=== PATIENT | female | born 1960 | race Caucasian/White ===

== ENCOUNTER → 2017-02-08 | Outpatient (REF) | payer OTHER ==
[~2017-02-08] MED LIST: /METH500TA OR; AMLO10TA2 PO; AMLO10TAB OR; AMLO5TAB OR; ASPI81TA83 OR; ASPI81TAEC PO; ATEN25TA OR; ATEN25TA PO; ATEN50TA2 OR; BENI40TA5 PO; BENICAR HCT PO; BIOTCAP PO; CETI10TA OR; COLA100C2 OR; COLA100C3 PO; FISH1000 OR; K-TA10TA OR; L-LY500C2 PO; MECL-68 PO; META0.52 PO; METAMUCIL PO; MULTIVIT PO; NASONEX INH; NEXI20CA OR; NEXI40CA PO; POTA10CA PO; ROSU10TA OR; VICO5TAB OR; VITAMIN D50000 UNT OR; VITMTA PO; ZOFR20TA PO; ZYRT10TA2 PO
== END ==
LOC: M LAB REF 16:54
PROVIDERS: ATTEND Physician Assistant Medical
DX: N39.0 Urinary tract infection, site not specified (principal)

== ENCOUNTER → 2017-03-17 | Outpatient (REF) | payer OTHER | LOC: M SFHCWAGY 12:41 | PROVIDERS: ATTEND Nurse Practitioner Family | DX: Z12.4 Encounter for screening for malignant neoplasm of cervix (principal) ==

== ENCOUNTER → 2017-03-17 | Outpatient (CLI) | payer OTHER ==
--- NOTE | 2017-03-17 12:58 | REPMRS ---
Patient History The patient states she had a clinical breast exam in 04/01 Patient is postmenopausal and has history of skin cancer at age 45. No known family history of cancer. Digital Woman Screen Mammo: March 17, 2017 - Exam #: [id number] Bilateral CC and MLO view(s) were taken. Technologist: Janell Jimenes, Technologist Prior study comparison: March 11, 2016, digital woman screen mammo performed at [facility] to [facility]. August 29, 2014, digital woman screen mammo performed at [facility] to [facility]. FINDINGS: There are scattered fibroglandular densities. There has been no change in the appearance of the mammogram from the prior studies. There is a mild amount of residual fibroglandular tissue which is fairly symmetric. There is no interval development of dominant mass, architectural distortion, or clustered microcalcification suggestive of malignancy. ASSESSMENT: BI-RADS/ACR category 1 mammogram. Negative. Recommendation Routine screening mammogram in 1 year (for women over age 40). This mammogram was interpreted with the aid of an FDA-approved computer-aided dectection system. Electronically Signed By: Aneesh Reddy MD 03/17/17 1257
== END ==
LOC: M WHC 10:12
PROVIDERS: ATTEND Nurse Practitioner Family
DX: Z12.31 Encounter for screening mammogram for malignant neoplasm of breast (principal)

== ENCOUNTER → 2018-05-02 | Outpatient (REF) | payer OTHER | LOC: M LAB REF 17:11 | DX: R35.0 Frequency of micturition (principal) ==

== ENCOUNTER → 2018-06-22 | Outpatient (REF) | payer OTHER ==
[2018-06-26 14:12] LABS: HPV HYBRID CAPTURE II Negative (Negative)
== END ==
LOC: M SFHCWAGY 09:53
DX: Z12.4 Encounter for screening for malignant neoplasm of cervix (principal); N95.2 Postmenopausal atrophic vaginitis
CPT/HCPCS: G0123

== ENCOUNTER → 2018-06-22 | Outpatient (CLI) | payer OTHER | LOC: M WHC 09:30 | DX: Z12.31 Encounter for screening mammogram for malignant neoplasm of breast (principal) | CPT/HCPCS: 77067; G0123 ==

== ENCOUNTER → 2019-08-16 | Outpatient (CLI) | payer OTHER ==
[~2019-08-16] MED LIST changes: -/METH500TA OR; -AMLO10TA2 PO; +AMLO10TA5 PO; +BENI40TA28 PO; -BENI40TA5 PO; -COLA100C3 PO; +COLA100C5 PO; +CRES10TA32 OR; +KLOR10TA76 PO; +METH1TAB40 OR; -POTA10CA PO; -ROSU10TA OR; -ZOFR20TA PO; +ZOFR4TAB16 PO; +ZYRT10CA5 PO; -ZYRT10TA2 PO
--- NOTE | 2019-08-16 10:50 | REP ---
Clinical: Sciatica. Technique: AP, lateral, bilateral oblique and coned-down views of the lumbosacral spine. Findings: Age-related osteopenia and moderate multilevel degenerative changes includes endplate sclerosis with minimal disc space narrowing and hypertrophic facet changes. Findings most pronounced at L4-5 and L5-S1. No acute fracture / compression injury or subluxation. No obvious spondylolysis or spondylolisthesis. Impression: Osteopenia and moderate multilevel degenerative changes. Electronically Signed by Les Adams MD 08/16/2019 10:41 A
== END ==
LOC: M WUC 10:17
PROVIDERS: ATTEND Internal Medicine
DX: M54.31 Sciatica, right side (principal)

== ENCOUNTER → 2019-11-15 | Outpatient (CLI) | payer OTHER ==
[~2019-11-15] MED LIST changes: -MECL-68 PO; +MECL1TAB31 PO
--- NOTE | 2019-11-15 14:57 | REP ---
BILATERAL SCREENING DIGITAL MAMMOGRAM WITHOUT 3D TOMOSYNTHESIS: There are no palpable abnormalities or other breast complaints. The the patient states she had a clinical breast examination October,. The the patient states she performs self-breast examinations 12 times per year. The Tyrer-zi Lifetime Breast Cancer Risk Score is: 7.3% . Comparison is 08/29/2014. There are scattered areas of fibroglandular density. There is no dominant mass, micro calcific cluster or architectural distortion that would indicate malignancy. There is no change from the prior study. Impression: BIRADS/ACR category 1 mammogram. Negative. Recommendation: Routine annual screening mammography. This mammogram was interpreted with the aid of a FDA approved computer-aided detection system. A. Negative mammogram reports should not delay biopsy if a dominant or clinically suspicious mass is present. B. Not all breast cancers are identified by mammography or tomosynthesis. C. Adenosis and dense breasts may obscure an underlying neoplasm. Patient letter M1. Electronically Signed by Aneesh White MD 11/15/2019 02:49 P
== END ==
LOC: M WHC 14:00
PROVIDERS: ATTEND Nurse Practitioner Family
DX: Z12.31 Encounter for screening mammogram for malignant neoplasm of breast (principal)
CPT/HCPCS: 77067; G0463

== ENCOUNTER → 2021-02-11 | Outpatient (CLI) | payer OTHER ==
[~2021-02-11] MED LIST changes: -AMLO10TA5 PO; +AMLO1TAB25 PO; +ASPI-569 PO; -ASPI81TAEC PO
--- NOTE | 2021-02-11 12:20 | REPMRS ---
Patient History The patient states she had a clinical breast exam in January 2021. No known family history of cancer. Took estrogen for 1 year. Patient states no breast complaints. Patient has signed the MRS history sheet. Digital Woman Screen Mammo: February 11, 2021 - Exam #: [id number] Bilateral CC and MLO view(s) were taken. Technologist: Janell Jimenes, Technologist Prior study comparison: November 15, 2019, bilateral digital woman screen mammo performed at [facility]. June 22, 2018, bilateral digital woman screen mammo performed at [facility]. FINDINGS: There are scattered fibroglandular densities. Screening. Digital screening (2D) mammography was performed bilaterally in the CC and MLO projections. Additionally, breast tomosynthesis (3D mammography) was performed bilaterally in the CC and MLO projections. Todays exam was compared to the prior exams(s). By history, the patient has no complaints of a palpable breast abnormality or other significant breast complaints. The breasts are unchanged in size and shape. There are no laurent-soft tissue densities or spiculated masses. There is no internal architectural distortion.Once again, stable benign appearing calcifications are seen. There are no suspicious laurent-calcific clusters. Skin thickening or nipple retraction is not present. IMPRESSION: BI-RADS Category 2- Benign Findings(s). There is no evidence of malignant alteration of the breasts. Followup examination recommended in one year. The Volpara volumetric breast density category is B, there are scattered areas of fibroglandular density. This mammogram was read with the assistance of [employer],an FDA approved computer aided detection system for mammography. The lifetime Tyrer-Cuzick score is 7.1 % Negative x-ray reports should not delay surgical consultation if a dominant or clinically suspicious mass is present. Not all breast cancers can be identified by mammography. Therefore, we recommend that you continue to perform regular breast self-examination and physical examination and then promptly contact your physician of any concerns or changes. Adenosis and dense breasts may obscure an underlying neoplasm. Assessment: BI-RADS/ACR category 2 mammogram. Benign Findings. Recommendation Routine screening mammogram of both breasts in 1 year. Electronically Signed By: Roland Woodard DO 02/11/21 [id number]
== END ==
LOC: M WHC 10:39
PROVIDERS: ATTEND Nurse Practitioner Women's Health
DX: Z12.31 Encounter for screening mammogram for malignant neoplasm of breast (principal); Z12.4 Encounter for screening for malignant neoplasm of cervix
CPT/HCPCS: 77063; 77067; 87624; G0123; G0463

== ENCOUNTER → 2021-02-22 | Outpatient (CLI) | payer OTHER ==
--- NOTE | 2021-02-22 15:29 | REP ---
INDICATION: R10.2 RT ADNEXAL TENDERNESS COMPARISON: 01/07/2010 TECHNIQUE: Transabdominal pelvic ultrasound followed by transvaginal examination for better evaluation of the endometrium and adnexa with color Doppler evaluation of the ovaries. FINDINGS: Bladder is unremarkable and measures 5.4 x 1.3 x 4.3 cm. Normal anteverted uterus measures 5.5 x 2.0 x 3.4 cm. The endometrial complex measures less than 2 mm thickness. No discrete uterine or endometrial abnormalities are appreciated. Right ovary is not visualized. Left ovary is normal in appearance and vascularity without torsion measuring 2.2 x 1.2 x 1.5 cm (RI 0.79). No pelvic fluid or adnexal mass lesion. IMPRESSION: No obvious abnormalities. Right ovary not visualized. <Electronically signed by Les Adams > 02/22/21 1240
== END ==
LOC: M WHC 09:58
PROVIDERS: ATTEND Nurse Practitioner Women's Health
DX: R10.2 Pelvic and perineal pain (principal)

== ENCOUNTER 2021-08-13 08:25 | Day surgery (SDC) | payer OTHER ==
[~2021-08-13] VITALS: Ht 157.5 cm; Wt 64.8 kg
[~2021-08-13 08:25] MED LIST changes: +CETI10CA13 PO; +CRES10TA; +D31000TA2 PO; +FLUC150T; +GABA600T4 PO; -KLOR10TA76 PO; +L-LY500T9 PO; +NITR0.4S14 SL; +NS 1,000 ML IV ONE; +POTA-136 PO
--- OUTSIDE RECORDS SUMMARY | 2021-08-13 08:31 | CCD | Continuity of Care Document ---
Author Author Sharon BUNCH M.D. Organization Unknown Address [address] [place], [place] [address] Phone [phone] Problems Active Problems Provider Date Gastroesophageal reflux disease Fredi Bunch M.D. Onse t: 11/29/2018 Essential hypertension Fredi Bunch M.D. Onset: 2018 Hyperlipidemia Fredi Bunch M.D. Onset: 9 Vertigo Fredi Bunch M.D. Onset: 9 Coronary atherosclerosis Fredi Bunch M.D. Onset: 11/16 Herpes labialis Fredi Bunch M.D. Onset: 9 Social History Type Date Description Comments Sex Unknown Tobacco Use Start: Unknown End: Quit Tobacco Use Start: Unknown End: Unknown Patient is a former smoker Allergies, Adverse Reactions, Alerts Active Allergies Criticality Reaction | Severity Comments Date Cefzil Unable to assess criticality hives 11/29/2018 Medications Active Medications SIG Qnty Indications Ordering Provide r Date Cipro 500mg Tablets 1 by mouth twice a day 6tabs Fredi Bunch M.D. 06/28/20 21 Zithromax Z-Vitaliy 250mg Tablets 2 tab by mouth today and then 1 tab by mouth daily for 4 days 1pack Fredi Bunch M.D. 11/25/2020 Diflucan 150mg Tablets one by mouth x1 2tabs Fredi Bunch M.D. 11/25/[address] 1 by mouth every day 90tabs Fredi Bunch M.D. 11/12/19 20 Tramadol HCL 50mg Tablets 1 tab by mouth three times a day as needed pain. [id number] 45tabs [facility] Fredi hussein M.D. 08/16/2019 Gabapentin 600mg Tablets take one tablet by mouth three times a day 270taFredi Robertson M. D. 07/12/2019 Potassium Chloride ER 10Meq Capsul es ER 1 by mouth twice a day 180Fredi Caicedo M.D. Biotin 5000 5mg Capsules 1 by mouth every day 30Fredi Caicedo M.D. 11/29/19 19 Magnesium 400mg Tablets 1 by mouth every day 30taFredi Robertson M.D. 11/29/19 19 L-Lysine 500mg Tablets 2 po q d Fredi Bunch M.D. 11/29/2018 Vitamin D3 5000Unit Tablets 1 by mouth every day OTC Fredi Bunch M.D. 11/29/19 19 Metamucil 0.52gm Capsules 4 p o qd OTC Fredi Bunch M.D. 11/29/2018 Nitroglycerin 0.4mg Tablets Sub take 1 tablet under the tongue every 5 minutes x 3 doses as needed for chest pain 1bottle Fredi Bucnh M.D. 11/29/2018 Co Q 10 100mg Capsules 1 by mouth every day Unknown One Daily Multivitamin Women Tabl ets 1 po qd Unknown Colace 100mg Capsules 1 by mouth twice a day Unknown Ondansetron HCL 4mg Tablets take one tablet by mouth every 8 hours as needed for nausea Fredi Bunch M.D. Meclizine HCL 25mg Tablets 1 by mouth three times a day as needed for vertigo Fredi Bunch M.D. Methocarbamol 500mg Tablets 1 by mouth every day 90taFredi Robertson M.D. Valtrex 1gm Tablets 2 po bid 4tabs Fredi Bunch M.D. Aspirin 81mg Tablets DR 1 by mouth every day Unknown Crestor 10mg Tablets 1 by mouth every day 90tabs Fredi Bunch M.D. Loratadine 10mg Tablets 1 by mouth every day 90taFredi Robertson M.D. 00 Amlodipine Besylate 10mg Tablets 1 by mouth every day 90tabs Fredi Bunch M.D. Benicar HCT 40-12.5mg Tablets 1 by mouth every day 90tabs Fredi Bunch M.D. Atenolol 25mg Tablets 1 by mouth every day 90tabs Fredi Bunch M.D. Medications Administered in Office Medication SIG Qnty Indications Ordering Provider Date Injection (SC)/(Im) Injection Fredi Bunch M.D. 07/12/2019 Immunizations CPT Code Status Date Vaccine Lot # [id number] Given 07/13/2020 Influenza Virus Vaccine, Quadrivalent, Slit Virus, Im Use 3Y & Up [id number] Given 07/12/2019 Influenza Virus Vaccine, Quadrivalent, Slit Virus, Im Use 3Y & Up [id number] Vital Signs Date Vital Result Comment 06/28/2021 10:06am BP Systolic 126 mmHg BP Diastolic 76 mmHg Body Temperature 98.7 F Heart Rate 92 /min Respiratory Rate 12 /min Height 62 inches 5'2" Weight 136.00 lb [place] Body Weight 110 lb BMI (Body Mass Index) 24.9 kg/m2 O2 % BldC Oximetry 97 % 04/09/2021 9:25am BP Systolic 124 mmHg BP Diastolic 70 mmHg Body Temperature 98.2 F Heart Rate 60 /min Respiratory Rate 12 /min Height 62 inches 5'2" Weight 138.00 lb [place] Body Weight 110 lb BMI (Body Mass Index) 25.2 kg/m2 O2 % BldC Oximetry 96 % Results Test Acquired Date Facility Test Result H/L Range Note U/A DIP FPA 06/28/2021 [facility] Color Urine YELLOW Yellow Appearance CLEAR Clear Specific [place] 1.020 1.00-1.03 PH Urine 6.0 5.0-8.0 Glucose Urine NEG Negative Bilirubin Urine NEG Negative Ketones NEG Negative Blood Urine 2+ High Negative Protein Urine 1+ High Negative Urobilinogen .2 EU/dl 0.2-1.0 Nitrite NEG Negative Leukocytes 3+ High Negative Urine Culture, Routine 06/28/2021 [facility] [place] Urine Culture, Routine Preliminary repo <SEE NOTE> Abnormal 1, 2 Result 1 Klebsiella pneum <SEE NOTE> Abnormal 3 CBC 03/19/2021 [facility]/Inhouse WBC 5.8 10E3/uL 4.1 - 10.9 4 RBC 4.57 10E6/uL 4.20 - 6.30 HGB 13.7 g/dL 12.0 - 18.0 HCT 40.8 % 37.0 - 51.0 MCV 89.3 fL 80.0 - 97.0 MCH 30.0 pg 26.0 - 32.0 MCHC 33.6 g/dL 31.0 - 36.0 PLT 220 10E3/uL 140 - 440 RDW-CV 12.6 % 11.5 - 14.5 Lym% 44.5 % 10.0 - 58.5 Neut% 45.0 % 37.0 - 92.0 MXD% 10.5 % 0.1 - 24.0 Lym# 2.6 10E3/uL 0.6 - 4.1 Neut# 2.6 % 2.0 - 7.8 MXD# 0.6 10E3/uL 0.0 - 1.8 MPV 9.4 fL 9.0 - 13.0 CMP 03/19/2021 [facility]Inhouse Glu 90 mg/dL 70 - 110 BUN 10 mg/dL 8 - 23 Creat 0.8 mg/dL 0.5 - 1.0 BUN/Creatinine Ratio 12.7 CALC Na 140 mmol/L 136 - 145 K 3.8 mmol/L 3.5 - 5.1 CL 99.9 mmol/L 98.0 - 107.0 Co2 26.8 mmol/L 22.0 - 29.0 CA 9.4 mg/dL 8.6 - 10.2 TP 6.5 g/dL Low 6.6 - 8.7 Alb 4.7 g/dL 3.4 - 4.8 A/G Ratio 2.5 CALC Globulin 1.9 CALC Alp 89.8 U/L 35 - 129 Alt (SGPT) 17 U/L 0 - 41 Ast (Sgot) 23 U/L 0 - 40 Tbili 0.52 mg/dL 0.0 - 1.2 Osmolality-Calculated 278.6 CALC Anion Gap 18 mmol/L eGFR 91 # Calc 5 eGFR Non-Afr. Scottish 78 # Calc 6 Lipid Panel 03/19/2021 [facility]/Inhouse Chol 157 mg/dL 0 - 200 Trig 124 mg/dL 40 - 200 HDL 47 mg/dL 45 - 65 LDL_C 85 Calc 75 - 129 Cho/HDL Ratio 3.3 Calc 1 SRC:URINE 2 Preliminary report Source of Specimen: URINE 3 Klebsiella pneumoniae Source of Specimen: URINE 10,000-25,000 colony forming units per m L 4 NORMAL RANGES Age WBC RBC HGB HCT MCV PLT Adult M 4.1-10.9 4.20-6.30 12.0-18.0 37.0-51.0 80-97 140-440 Adult F 4.1-10.9 4.04-5.48 12.0-18.0 37.0-51.0 80-97 140-440 0 -1 Yr 5.0-20.0 3.9-5.9 15-18 MV: 44 MV: 91 MV: 277 2-9 Yr. 6.0-17.0 3.8-5.4 11-13 MV: 37 MV: 78 MV: 300 10 Yrs. 5.0-13.0 3.8-5.4 12-15 MV: 39 MV: 80 MV: 250 NOTE: * FOR ADULT BLACK MALES AND FEMALES, NORMAL WBC IS 2.9-7.7 K/ML * FOR ADULT BLACK MALES AND FEMALES, NORMAL RBC,HGB, AND HCT IS 5% LESS SOURCE FOR DATA: 6fusion 1800 OPERATION MANUAL( AUTOMATED BLOOD COUNTS AND DIFF.) APPENDIX B-3 CHRONIC KIDNEY DISEASE STAGING PER NKF: MALE GFR INTERPRETATION: 20-49 YRS: >60 mL/min Normal 50-59 YRS: >56 mL/min Normal 60-69 YRS: >49 mL/min Normal 70-79 YRS: >42 mL/min Normal 80 and above >35 mL/min Normal FEMALE GRF INTERPRETATION: 20-39 YRS: >60 mL/min Normal 40-49 YRS: >58 mL/min Normal 50-59 YRS: >51 mL/min Normal 60-69 YRS: >45 mL/min Normal 70-79 YRS: >39 mL/min Normal 80 and above >32 mL/min NormalCLASSIFICATION CHOLESTEROL FOR ADULTS CHILDREN/ADOLESCENTS* DESIRABLE: <200 MG/DL <170 MG/DL BORDER-LINE HIGH RISK: 200-239 MG/DL 170-199 MG/DL HIGH RISK: >240 MG/DL >200 MG/DL CLASS. FOR PRIMARY LDL CHOL PREVENTION: LDL CHOL-CHILD/ADOLESCENTS* DESIRABLE: <130 MG/DL <110 MG/DL BORDERLINE-HIGH RISK: 130-159 MG/DL 110-129 MG/DL HIGH RISK: >160 MG/DL >130 MG/DL *CHILDREN AND ADOLESCENTS REPRESENTS INDIVIDUALA AGED 2-19 YEARS EXCLUSIVE. 5 CKD-EPI 6 CKD-EPI Procedures Date Code Description Status 06/28/2021 24733 Office/Outpatient Established Mo d MDM 30-39 Min Completed 04/09/2021 68813 Office/Outpatient Established Mo d MDM 30-39 Min Completed 03/19/2021 70157 Office/Outpatient Established Mo d MDM 30-39 Min Completed Medical Devices Description No Information Available Encounters Type Date Location Provider Dx Diagnosis Office Visit 06/28/2021 10:00a [place] [facility] Fredi Bunch M. D. N39.0 Urinary tract infection, site not specified Office Visit 04/09/2021 9:15a [place] [facility] Fredi Bunch M. D. Z85.828 Personal history of other malignant neoplasm of skin J01.90 Acute sinusitis, unspecified Office Visit 03/19/2021 10:20a [place] [facility] Fredi Bunch M. D. E78.5 Hyperlipidemia, unspecified I10 Essential (primary) hyperten delmi I25.10 Athscl heart disease of sarah ve coronary artery w/o ang pctrs K21.9 Gastro-esophageal reflux dis ease without esophagitis Assessments Date Code Description Provider 06/28/2021 N39.0 Urinary tract infection, site no t specified Fredi Bunch M.D. 04/09/2021 Z85.828 Personal history of other malign ant neoplasm of skin Fredi Bunch M.D. 04/09/2021 J01.90 Acute sinusitis, unspecified [facility] Fredi jackson M.D. 03/19/2021 E78.5 Hyperlipidemia, unspecified [facility] Fredi hussein M.D. 03/19/2021 I10 Essential (primary) hypertension Fredi Bunch M.D. 03/19/2021 I25.10 Atherosclerotic heart disease of resighini coronary artery with Fredi Bunch M.D. 03/19/2021 K21.9 Gastro-esophageal reflux disease without esophagitis Fredi Bunch M.D. Plan of Treatment No Information Available Functional Status Description No Information Available Mental Status Description No Information Available Referrals Refer to Reason for Referral Status Appt Date [facility] f/u for basal cell ca Tr icare Auth [id number] Expiration 04/03/22 Sent [id number] [facility] [address] [place] [address] [phone] Sanju Kaplan M.D. screening cscope Sent 05/04/2021 [address] [facility] [address] [place], [place] [address] [phone]
--- OUTSIDE RECORDS SUMMARY | 2021-08-13 08:31 | CCD | Continuity of Care Document ---
Author Author Sharon BUNCH M.D. Organization Unknown Address [address] [place], [place] [address] Phone [phone] Problems Active Problems Provider Date Gastroesophageal reflux [...] three times a day as needed pain. [id number] 45tabs [facility] Fredi hussein M.D. 08/16/2019 Gabapentin [...] as needed for chest pain 1bottle Fredi Bunch M.D. 11/29/2018 Co Q 10 100mg Capsules [...] CPT Code Status Date Vaccine Lot # 48499 Given 07/13/2020 Influenza Virus Vaccine, Quadrivalent, Slit Virus, Im Use 3Y & Up [id number] Given 07/12/2019 Influenza Virus Vaccine, Quadrivalent, Slit Virus, Im Use 3Y & Up [id number] Vital Signs Date Vital Result Comment 06/28/2021 10:06am BP Systolic 126 mmHg BP Diastolic 76 mmHg Body Temperature 98.7 F Heart Rate 92 /min Respiratory Rate 12 /min Height 62 inches 5'2" Weight 136.00 lb [place] Body Weight 110 lb BMI (Body Mass Index) 24.9 kg/m2 O2 % BldC Oximetry 97 % 04/09/2021 9:25am BP Systolic 124 mmHg BP Diastolic 70 mmHg Body Temperature 98.2 F Heart Rate 60 /min Respiratory Rate 12 /min Height 62 inches 5'2" Weight 138.00 lb [place] Body Weight 110 lb BMI (Body Mass Index) 25.2 kg/m2 O2 % BldC Oximetry 96 % Results Test Acquired Date Facility Test Result H/L Range Note U/A DIP FPA 06/28/2021 [facility] Color Urine YELLOW Yellow Appearance CLEAR Clear Specific [place] 1.020 1.00-1.03 PH Urine 6.0 5.0-8.0 Glucose Urine NEG Negative Bilirubin Urine NEG Negative Ketones NEG Negative Blood Urine 2+ High Negative Protein Urine 1+ High Negative Urobilinogen .2 EU/dl 0.2-1.0 Nitrite NEG Negative Leukocytes 3+ High Negative Urine Culture, Routine 06/28/2021 [facility] [place] Urine Culture, Routine Final report Abnormal 1, 2 Result 1 Klebsiella pneum <SEE NOTE> Abnormal 3 Antimicrobial Susceptibility See Comment: 4 CBC 03/19/2021 FPA/Inhouse WBC 5.8 10E3/uL 4.1 - 10.9 5 RBC 4.57 10E6/uL 4.20 - 6.30 HGB [...] Gap 18 mmol/L eGFR 91 # Calc 6 eGFR Non-Afr. Swedish 78 # Calc 7 Lipid Panel 03/19/2021 [facility]/Inhouse Chol 157 mg/dL 0 - 200 Trig 124 mg/dL 40 - 200 HDL 47 mg/dL 45 - 65 LDL_C 85 Calc 75 - 129 Cho/HDL Ratio 3.3 Calc 1 SRC:URINE 2 Source of Specimen: URINE 3 Klebsiella pneumoniae Source of Specimen: URINE 10,000-25,000 colony forming units per m L Cefazolin <=4 ug/mL Cefazolin with an ERIC <=16 predicts susceptibility to the oral agents cefaclor, cefdinir, cefpodoxime, cefprozil, cefuroxime, cephalexin, and loracarbef when used for therapy of uncomplicated urinary tract infections due to E. coli, Klebsiella pneumoniae, and Proteus mirabilis. 4 Source of Specimen: URINE S = Susceptible; I = Intermediate; R = Resistant P = Positive; N = Negative MICS are expressed in micrograms per mL Antibiotic RSLT#1 RSLT#2 RSLT#3 RSLT#4 Amoxicillin/Clavulanic Acid S Ampicillin R Cefepime S Ceftriaxone S Cefuroxime S Ciprofloxacin S Ertapenem S Gentamicin S Imipenem S Levofloxacin S Meropenem S Nitrofurantoin R Piperacillin/Tazobactam S Tetracycline R Tobramycin S Trimethoprim/Sulfa S 5 NORMAL RANGES Age WBC RBC HGB HCT [...] HCT IS 5% LESS SOURCE FOR DATA: [employer] 1800 OPERATION MANUAL( AUTOMATED BLOOD COUNTS AND [...] ADOLESCENTS REPRESENTS INDIVIDUALA AGED 2-19 YEARS EXCLUSIVE. 6 CKD-EPI 7 CKD-EPI Procedures Date Code Description Status 06/28/2021 09432 Office/Outpatient Established Mo d MDM 30-39 Min Completed 04/09/2021 49193 Office/Outpatient Established Mo d MDM 30-39 Min Completed 03/19/2021 82648 Office/Outpatient Established Mo d MDM 30-39 Min Completed Medical Devices Description No Information Available Encounters Type Date Location Provider Dx Diagnosis Office Visit 06/28/2021 10:00a [facility] Fredi Bunch M. D. N39.0 Urinary tract infection, site not specified Office Visit 04/09/2021 9:15a [place] [facility] Fredi Bunch M. D. Z85.828 Personal history of other malignant neoplasm of skin J01.90 Acute sinusitis, unspecified Office Visit 03/19/2021 10:20a [place] [facility] Fredi Bunch M. D. E78.5 Hyperlipidemia, [...] Bunch M.D. 04/09/2021 J01.90 Acute sinusitis, unspecified [facility] Fredi jackson M.D. 03/19/2021 E78.5 Hyperlipidemia, unspecified [facility] Fredi hussein M.D. 03/19/2021 I10 Essential (primary) hypertension Fredi Bunch M.D. 03/19/2021 I25.10 Atherosclerotic heart disease of three affiliated coronary artery with Fredi Bunch M.D. 03/19/2021 K21.9 Gastro-esophageal reflux disease without esophagitis Fredi Bunch M.D. Plan of Treatment No Information Available Functional Status Description No Information Available Mental Status Description No Information Available Referrals Refer to Dr Reason for Referral Status Appt Date [facility] f/u for basal cell ca Tr icare Auth [id number] Expiration 04/03/22 Sent [address] [place] [address] [phone] Sanju Kaplan M.D. screening cscope Sent 05/04/2021 [address] [facility] [address] [place], [place] [address] [phone]
--- OUTSIDE RECORDS SUMMARY | 2021-08-13 08:31 | CCD | Continuity of Care Document ---
Author Author Nurses Sharon Yu Organization Unknown Address [address] [address] Phone Unavailable Problems Active Problems Provider Date Gastroesophageal reflux [...] End: Unknown Patient is a former smoker Allergies and adverse reactions Active Allergies Criticality Reaction | Severity Comments [...] three times a day as needed pain. [id number] [facility] Gabapentin 600mg Tablets take one tablet by mouth three times a day 270tabs Fredi Bunch M. D. 07/12/2019 Potassium Chloride ER 10Meq Capsul es ER 1 by mouth twice a day 180capFredi Aguilar M.D. Biotin 5000 5mg Capsules 1 by mouth every day 30capFredi Aguilar M.D. 11/29/19 19 Magnesium 400mg Tablets 1 by mouth every day 30tabs Fredi Bunch M.D. 11/29/19 19 L-Lysine 500mg Tablets 2 [...] 500mg Tablets 1 by mouth every day 90tabs Fredi Bunch M.D. Valtrex 1gm Tablets 2 po bid 4tabs Fredi Bunch M.D. Aspirin 81mg Tablets DR 1 by mouth every day Unknown Crestor 10mg Tablets 1 by mouth every day 90tabs Fredi Bunch M.D. Loratadine 10mg Tablets 1 by mouth every day 90tabs Fredi Bunch M.D. Amlodipine Besylate 10mg Tablets 1 by mouth every day 90taFredi Robertson M.D. Benicar HCT 40-12.5mg Tablets 1 by mouth every day 90tabs Fredi Bunch M.D. Atenolol 25mg Tablets 1 by mouth every day 90tabs Fredi Bunch M.D. Medications Administered in Office Medication SIG Qnty Indications Ordering Provider Date Injection (SC)/(Im) Injection Fredi Bunch M.D. 07/12/2019 Immunizations CPT Code Status Date Vaccine Lot # [id number] Given 07/19/2021 Influenza Virus Vaccine, Quadrivalent, Slit Virus, Im Use 3Y & Up 45566 Given 07/13/2020 Influenza Virus Vaccine, Quadrivalent, Slit Virus, Im Use 3Y & Up [id number] 70323 Given 07/12/2019 Influenza Virus Vaccine, Quadrivalent, Slit Virus, Im Use 3Y & Up [id number] Vital Signs Date Vital Result Comment 06/28/2021 10:06am BP Systolic 126 mmHg BP Diastolic 76 mmHg Body Temperature 98.7 F Heart Rate 92 /min Respiratory Rate 12 /min Height 62 inches 5'2" Weight 136.00 lb [place] Body Weight 110 lb BMI (Body Mass Index) 24.9 kg/m2 O2 % BldC Oximetry 97 % 04/09/2021 9:25am BP Systolic 124 mmHg BP Diastolic 70 mmHg Body Temperature 98.2 F Heart Rate 60 /min Respiratory Rate 12 /min Height 62 inches 5'2" Weight 138.00 lb [place] Body Weight 110 lb BMI (Body Mass Index) 25.2 kg/m2 O2 % BldC Oximetry 96 % Results Test Acquired Date Facility Test Result H/L Range Note U/A DIP FPA 06/28/2021 [facility] Color Urine YELLOW Yellow Appearance CLEAR Clear Specific [place] 1.020 1.00-1.03 PH Urine 6.0 5.0-8.0 Glucose [...] eGFR 91 # Calc 6 eGFR Non-Afr. Grenadian 78 # Calc 7 Lipid Panel 03/19/2021 [...] HCT IS 5% LESS SOURCE FOR DATA: [employer] 1800 OPERATION MANUAL( AUTOMATED BLOOD COUNTS AND [...] CKD-EPI Procedures Date Code Description Status 06/28/2021 45616 Office/Outpatient Established Mo d MDM 30-39 Min Completed 04/09/2021 42004 Office/Outpatient Established Mo d MDM 30-39 Min Completed 03/19/2021 74711 Office/Outpatient Established Mo d MDM 30-39 Min Completed Medical Devices Description No Information Available Encounters Type Date Location Provider Dx Diagnosis Office Visit 06/28/2021 10:00a [facility] Fredi Bunch M. D. N39.0 Urinary tract infection, site not specified Office Visit 04/09/2021 9:15a [place] [facility] Fredi Bunch M. D. Z85.828 Personal history of other malignant neoplasm of skin J01.90 Acute sinusitis, unspecified Office Visit 03/19/2021 10:20a [place] [facility] Fredi Bunch M. D. E78.5 Hyperlipidemia, unspecified I10 Essential (primary) hyperten delmi I25.10 Athscl heart disease of [place] coronary artery w/o ang pctrs K21.9 Gastro-esophageal reflux dis ease without esophagitis Assessments Date Code Description Provider 07/19/2021 Z23 Encounter for immunization Néstor Fredi conway M.D. 07/19/2021 Z23 Encounter for immunization Nurse s Schedule 06/28/2021 N39.0 Urinary tract infection, site no t specified Fredi Bunch M.D. 04/09/2021 Z85.828 Personal history of other malign ant neoplasm of skin Fredi Bunch M.D. 04/09/2021 J01.90 Acute sinusitis, unspecified [facility] Fredi jackson M.D. 03/19/2021 E78.5 Hyperlipidemia, unspecified [facility] Fredi hussein M.D. 03/19/2021 I10 Essential (primary) hypertension Fredi Bunch M.D. 03/19/2021 I25.10 Atherosclerotic heart disease of [place] coronary artery with Fredi Bunch M.D. 03/19/2021 K21.9 Gastro-esophageal reflux disease without esophagitis Fredi Bunch M.D. Plan of Treatment No Information Available Functional Status Description No Information Available Mental Status Description No Information Available Referrals Refer to Dr Reason for Referral Status Appt Date [facility] Nurse Practitioners f/u for basal cell ca Tr icare Auth [id number] Expiration 04/03/22 Sent [address] [place] [address] [phone] Sanju Kaplan M.D. screening cscope Sent 05/04/2021 826 [facility] [address] [place], [place] [address] [phone]
--- OUTSIDE RECORDS SUMMARY | 2021-08-13 08:31 | CCD | Continuity of Care Document ---
Author Author Sharon BUNCH M.D. Organization Unknown Address [address] [place], [place] [address] Phone [phone] Problems Active Problems Provider Date Gastroesophageal reflux [...] three times a day as needed pain. [id number] 45tabs [facility] Fredi hussein M.D. 08/16/2019 Gabapentin 600mg Tablets [...] CPT Code Status Date Vaccine Lot # [id number] Given 07/13/2020 Influenza Virus Vaccine, Quadrivalent, Slit Virus, Im Use 3Y & Up [id number] 29562 Given 07/12/2019 Influenza Virus Vaccine, Quadrivalent, Slit Virus, Im Use 3Y & Up [id number] Vital Signs Date Vital Result Comment 06/28/2021 10:06am BP Systolic 126 mmHg BP Diastolic 76 mmHg Body Temperature 98.7 F Heart Rate 92 /min Respiratory Rate 12 /min Height 62 inches 5'2" Weight 136.00 lb [place] Body Weight 110 lb BMI (Body Mass Index) 24.9 kg/m2 O2 % BldC Oximetry 97 % 04/09/2021 9:25am BP Systolic 124 mmHg BP Diastolic 70 mmHg Body Temperature 98.2 F Heart Rate 60 /min Respiratory Rate 12 /min Height 62 inches 5'2" Weight 138.00 lb [place] Body Weight 110 lb BMI (Body Mass Index) 25.2 kg/m2 O2 % BldC Oximetry 96 % Results Test Acquired Date Facility Test Result H/L Range Note U/A DIP FPA 06/28/2021 [facility] Color Urine YELLOW Yellow Appearance CLEAR Clear Specific [place] 1.020 1.00-1.03 PH Urine 6.0 5.0-8.0 Glucose [...] eGFR 91 # Calc 5 eGFR Non-Afr. Czech 78 # Calc 6 Lipid Panel 03/19/2021 [...] HCT IS 5% LESS SOURCE FOR DATA: [employer] 1800 OPERATION MANUAL( AUTOMATED BLOOD COUNTS AND [...] CKD-EPI Procedures Date Code Description Status 06/28/2021 98966 Office/Outpatient Established Mo d MDM 30-39 Min Completed 04/09/2021 17963 Office/Outpatient Established Mo d MDM 30-39 Min Completed 03/19/2021 17223 Office/Outpatient Established Mo d MDM 30-39 Min Completed Medical Devices Description No Information Available Encounters Type Date Location Provider Dx Diagnosis Office Visit 06/28/2021 10:00a [facility] Fredi Bunch M. D. N39.0 Urinary tract infection, site not specified Office Visit 04/09/2021 9:15a [facility] Fredi Bunch M. D. Z85.828 Personal history of other malignant neoplasm of skin J01.90 Acute sinusitis, unspecified Office Visit 03/19/2021 10:20a [facility] Fredi Bunch M. D. E78.5 Hyperlipidemia, [...] Bunch M.D. 04/09/2021 J01.90 Acute sinusitis, unspecified [facility] Fredi jackson M.D. 03/19/2021 E78.5 Hyperlipidemia, unspecified [facility] Fredi hussein M.D. 03/19/2021 I10 Essential (primary) hypertension Fredi Bunch M.D. 03/19/2021 I25.10 Atherosclerotic heart disease of [place] coronary artery with Fredi Bunch M.D. 03/19/2021 K21.9 Gastro-esophageal reflux disease without esophagitis Fredi Bunch M.D. Plan of Treatment No Information Available Functional Status Description No Information Available Mental Status Description No Information Available Referrals Refer to Reason for Referral Status Appt Date [facility] f/u for basal cell ca Tr icare Auth [id number] Expiration 04/03/22 Sent [address] [facility] [address] [place] [address] [phone] Sanju Kaplan M.D. screening cscope Sent 05/04/2021 826 [facility] [address] [place], [place] [address] [phone]
--- OUTSIDE RECORDS SUMMARY | 2021-08-13 08:31 | CCD | Continuity of Care Document ---
Author Author Sharon BUNCH M.D. Organization Unknown Address [address] [place], [place] [address] Phone [phone] Problems Active Problems Provider Date Gastroesophageal reflux [...] three times a day as needed pain. [id number] 45tabs [facility] Fredi hussein M.D. 08/16/2019 Gabapentin 600mg Tablets [...] CPT Code Status Date Vaccine Lot # [id number] Given 07/13/2020 Influenza Virus Vaccine, Quadrivalent, Slit Virus, Im Use 3Y & Up [id number] 65146 Given 07/12/2019 Influenza Virus Vaccine, Quadrivalent, Slit Virus, Im Use 3Y & Up [id number] Vital Signs Date Vital Result Comment 06/28/2021 10:06am BP Systolic 126 mmHg BP Diastolic 76 mmHg Body Temperature 98.7 F Heart Rate 92 /min Respiratory Rate 12 /min Height 62 inches 5'2" Weight 136.00 lb [place] Body Weight 110 lb BMI (Body Mass Index) 24.9 kg/m2 O2 % BldC Oximetry 97 % 04/09/2021 9:25am BP Systolic 124 mmHg BP Diastolic 70 mmHg Body Temperature 98.2 F Heart Rate 60 /min Respiratory Rate 12 /min Height 62 inches 5'2" Weight 138.00 lb [place] Body Weight 110 lb BMI (Body Mass Index) 25.2 kg/m2 O2 % BldC Oximetry 96 % Results Test Acquired Date Facility Test Result H/L Range Note CBC 03/19/2021 FPA/Inhouse WBC 5.8 10E3/uL 4.1 - 10.9 1 RBC 4.57 10E6/uL 4.20 - 6.30 HGB [...] Gap 18 mmol/L eGFR 91 # Calc 2 eGFR Non-Afr. Yemeni 78 # Calc 3 Lipid Panel 03/19/2021 FPA/Inhouse Chol 157 mg/dL 0 - 200 Trig 124 mg/dL 40 - 200 HDL 47 mg/dL 45 - 65 LDL_C 85 Calc 75 - 129 Cho/HDL Ratio 3.3 Calc 1 NORMAL RANGES Age WBC RBC HGB HCT [...] HCT IS 5% LESS SOURCE FOR DATA: [employer] 1800 OPERATION MANUAL( AUTOMATED BLOOD COUNTS AND [...] ADOLESCENTS REPRESENTS INDIVIDUALA AGED 2-19 YEARS EXCLUSIVE. 2 CKD-EPI 3 CKD-EPI Procedures Date Code Description Status 06/28/2021 60929 Office/Outpatient Established Mo d MDM 30-39 Min Completed 04/09/2021 73509 Office/Outpatient Established Mo d MDM 30-39 Min Completed 03/19/2021 02031 Office/Outpatient Established Mo d MDM 30-39 Min Completed Medical Devices Description No Information Available Encounters Type Date Location Provider Dx Diagnosis Office Visit 06/28/2021 10:00a [facility] Fredi Bunch M. D. N39.0 Urinary tract infection, site not specified Office Visit 04/09/2021 9:15a [facility] Fredi Bunch M. D. Z85.828 Personal history of other malignant neoplasm of skin J01.90 Acute sinusitis, unspecified Office Visit 03/19/2021 10:20a [facility] Fredi Bunch M. D. E78.5 Hyperlipidemia, [...] M.D. 03/19/2021 I25.10 Atherosclerotic heart disease of [place] coronary artery with Fredi Bunch M.D. 03/19/2021 K21.9 Gastro-esophageal reflux disease without esophagitis Fredi Bunch M.D. Plan of Treatment No Information Available Functional Status Description No Information Available Mental Status Description No Information Available Referrals Refer to Reason for Referral Status Appt Date [facility] Nurse Practitioners f/u for basal cell ca Tr icare Auth [id number] Expiration 04/03/[address] [facility] [address] [place] [address] [phone] Sanju Kaplan M.D. screening cscope Sent 05/04/[address] [address] [phone]
--- OUTSIDE RECORDS SUMMARY | 2021-08-13 08:31 | CCD | Continuity of Care Document ---
Author Author Sharon BUNCH M.D. Organization Unknown Address [address] [place], [place] [address] Phone [phone] Problems Active Problems Provider Date Gastroesophageal reflux [...] three times a day as needed pain. [id number] 45tabs [facility] Fredi hussein M.D. 08/16/2019 Gabapentin [...] CPT Code Status Date Vaccine Lot # 50766 Given 07/13/2020 Influenza Virus Vaccine, Quadrivalent, Slit Virus, Im Use 3Y & Up [id number] 53796 Given 07/12/2019 Influenza Virus Vaccine, Quadrivalent, Slit Virus, Im Use 3Y & Up [id number] Vital Signs Date Vital Result Comment 06/28/2021 10:06am BP Systolic 126 mmHg BP Diastolic 76 mmHg Body Temperature 98.7 F Heart Rate 92 /min Respiratory Rate 12 /min Height 62 inches 5'2" Weight 136.00 lb [place] Body Weight 110 lb BMI (Body Mass Index) 24.9 kg/m2 O2 % BldC Oximetry 97 % 04/09/2021 9:25am BP Systolic 124 mmHg BP Diastolic 70 mmHg Body Temperature 98.2 F Heart Rate 60 /min Respiratory Rate 12 /min Height 62 inches 5'2" Weight 138.00 lb [place] Body Weight 110 lb BMI (Body Mass Index) 25.2 kg/m2 O2 % BldC Oximetry 96 % Results Test Acquired Date Facility Test Result H/L Range Note U/A DIP FPA 06/28/2021 [facility] Color Urine YELLOW Yellow Appearance CLEAR Clear Specific [place] 1.020 1.00-1.03 PH Urine 6.0 5.0-8.0 Glucose Urine NEG Negative Bilirubin Urine NEG Negative Ketones NEG Negative Blood Urine 2+ High Negative Protein Urine 1+ High Negative Urobilinogen .2 EU/dl 0.2-1.0 Nitrite NEG Negative Leukocytes 3+ High Negative CBC 03/19/2021 FPA/Inhouse WBC 5.8 10E3/uL 4.1 [...] eGFR 91 # Calc 2 eGFR Non-Afr. Jamaican 78 # Calc 3 Lipid Panel 03/19/2021 [...] HCT IS 5% LESS SOURCE FOR DATA: [employer] 1800 OPERATION MANUAL( AUTOMATED BLOOD COUNTS AND [...] CKD-EPI Procedures Date Code Description Status 06/28/2021 96270 Office/Outpatient Established Mo d MDM 30-39 Min Completed 04/09/2021 07225 Office/Outpatient Established Mo d MDM 30-39 Min Completed 03/19/2021 12658 Office/Outpatient Established Mo d MDM 30-39 Min Completed Medical Devices Description No Information Available Encounters Type Date Location Provider Dx Diagnosis Office Visit 06/28/2021 10:00a [place] [facility] Fredi Bunch M. D. N39.0 Urinary tract infection, site not specified Office Visit 04/09/2021 9:15a [place] [facility] Fredi Bunch M. D. Z85.828 Personal history of other malignant neoplasm of skin J01.90 Acute sinusitis, unspecified Office Visit 03/19/2021 10:20a [place] [facility] Fredi Bunch M. D. E78.5 Hyperlipidemia, [...] Bunch M.D. 04/09/2021 J01.90 Acute sinusitis, unspecified Fredi Izquierdo M.D. 03/19/2021 E78.5 Hyperlipidemia, unspecified [place] Fredi hussein M.D. 03/19/2021 I10 Essential (primary) hypertension Fredi Bunch M.D. 03/19/2021 I25.10 Atherosclerotic heart disease of [place] coronary artery with Fredi Bunch M.D. 03/19/2021 K21.9 Gastro-esophageal reflux disease without esophagitis Fredi Bunch M.D. Plan of Treatment No Information Available Functional Status Description No Information Available Mental Status Description No Information Available Referrals Refer to Dr Reason for Referral Status Appt Date [facility] f/u for basal cell ca Tr icare Auth [id number] Expiration 04/03/22 Sent [address] [facility] [address] [place] [address] [phone] Sanju Kaplan M.D. screening cscope Sent 05/04/2021 826 [facility] [address] [place], [place] [address] [phone]
--- OUTSIDE RECORDS SUMMARY | 2021-08-13 08:31 | CCD | Continuity of Care Document ---
Author Author Sharon DAVIDSON [facility] Organization Unknown Address [address], [address] [place] [address] Phone [phone] Care Team Providers Care Study Specialist Name Role Phone Fredi Bunch MD [facility] [phone] Problems Description No Information Available Social History Type Date Description Comments Sex Unknown Tobacco Use Start: Unknown End: Unknown Former Cigarette Smo ker Quit 2003 ETOH Use Denies alcohol use Tobacco Use Start: Unknown End: Unknown Patient is a former smoker Quit in 2003 Sun Exposure minimum amount of sun exposure Sun Exposure Has never used tanning bed Sun Exposure Has never experienced blistering from sunburns Sun Exposure Uses > 30 SPF Allergies and adverse reactions Active Allergies Criticality Reaction | Severity Comments Date Cefzil Unable to assess criticality 09/25/2014 Medications Active Medications SIG Qnty Indications Ordering Provide r Date Metamucil Plus Calcium Capsules 4 tab by mouth twice a day Unknown Gabapentin Unknown Nitroglycerin 0.1mg/HR [place] 24HR Unknown Magnesium 300mg Capsules Unknown Cranberry 200mg Capsules Unknown Vitamin D3 400Unit/ML Liquid Unknown Metamucil 0.52gm Capsules Unknown One Daily Tablets Unknown Methocarbamol 500mg Tablets Unknown Loratadine 10mg Capsules Unknown Valacyclovir HCL 1gm Tablets 2 tabs by mouth and repeat in 12 hours Unknown Docqlace Unknown Aspir-Low 81mg Tablets DR 1 tab by mouth every day Unknown Nexium 20mg Capsules DR 1 tab by mouth twice a day Unknown Multivitamins Capsules 1 by mouth every day Unknown L-Lysine 500mg Tablets 1 tab by mouth every day Unknown Potassium Chloride ER 10Meq Tablet s ER 1 tab by mouth three times a day in the in the morning before breakfast Unknown Biotin 5000mcg Tablets 1 tab by mouth every day Unknown Meclizine HCL 25mg Tablets 1 tab by mouth three times a day as needed Unknown Ondansetron 4mg Tablets Dispers 1 tab as needed Unknown Amlodipine Besylate 10mg Tablets 1 tab by mouth every day Unknown Crestor 10mg Tablets 1 tab by mouth every day Unknown Zyrtec Allergy 10mg Tablets 1 by mouth every day Unknown Benicar HCT 40-12.5mg Tablets 1 tab by mouth every day Unknown Atenolol 25mg Tablets 1 tab by mouth every day Unknown Immunizations Description No Information Available Vital Signs Date Vital Result Comment 07/12/2021 8:51am BP Systolic 124 mmHg BP Diastolic 84 mmHg Heart Rate 64 /min Weight 136.00 lb 04/13/2020 7:58am BP Systolic 138 mmHg BP Diastolic 62 mmHg Results Description No Information Available Procedures Date Code Description Status 07/12/2021 98770 Office/Outpatient Established Mo d MDM 30-39 Min Completed Medical Devices Description No Information Available Encounters Type Date Location Provider Dx Diagnosis Office Visit 07/12/2021 8:45a Main Office RAFAEL Khan D22.5 Melanocytic nevi of trunk D22.4 Melanocytic nevi of scalp an d neck D22.30 Melanocytic nevi of unspecif ied part of face D22.72 Melanocytic nevi of left low er limb, including hip D22.71 Melanocytic nevi of right lo wer limb, including hip D22.61 Melanocytic nevi of right up per limb, including shoulder D22.62 Melanocytic nevi of left upp er limb, including shoulder L82.1 Other seborrheic keratosis L81.4 Other melanin hyperpigmentat ion Z85.828 Personal history of other ma lignant neoplasm of skin Z08 Encntr for follow-up exam af ter trtmt for malignant neoplasm Assessments Date Code Description Provider 07/12/2021 D22.5 Melanocytic nevi of trunk Adela bower RAFAEL Ponce 07/12/2021 D22.4 Melanocytic nevi of scalp and ne ck RAFAEL Khan 07/12/2021 D22.30 Melanocytic nevi of unspecified part of face RAFAEL Khan 07/12/2021 D22.72 Melanocytic nevi of left lower l imb, including hip RAFAEL Khan 07/12/2021 D22.71 Melanocytic nevi of right lower limb, including hip RAFAEL Khan 07/12/2021 D22.61 Melanocytic nevi of right upper limb, including shoulder RAFAEL Khan 07/12/2021 D22.62 Melanocytic nevi of left upper l imb, including shoulder RAFAEL Khan 07/12/2021 L82.1 Other seborrheic keratosis Amye RAFAEL Helm 07/12/2021 L81.4 Other melanin hyperpigmentation RAFAEL Khan 07/12/2021 Z85.828 Personal history of other malign ant neoplasm of skin RAFAEL Khan 07/12/2021 Z08 Encounter for follow-up examinat ion after completed treatmen RAFAEL Khan Plan of Treatment 07/12/2021 - RAFAEL Khan* D22.5 Melanocytic nevi of trunk* Comments:* Nevi on trunk appear healthy. Monitor for changes. Pineda angiomas - reassuranceSun protection and sunscreen use discussed. Literature given on monthly self skin evaluations. Should any moles change in shape or color, itch, bleed or burn, pt will contact office for evaluation sooner than their interval appointment. * D22.4 Melanocytic nevi of scalp and neck* Comments:* Nevus on neck appear healthy. Monitor for changes * D22.30 Melanocytic nevi of unspecified part of face* Comments:* Nevus located on face appears healthy. Monitor for changes * D22.72 Melanocytic nevi of left lower limb, including hip* Comments:* Nevus located on L leg appears healthy. Monitor for changes. * D22.71 Melanocytic nevi of right lower limb, including hip* Comments:* Nevi located on R leg. Monitor for changes. * D22.61 Melanocytic nevi of right upper limb, including shoulder* Comments:* Nevi located on R arm appears healthy. Monitor for changes. * D22.62 Melanocytic nevi of left upper limb, including shoulder* Comments:* Nevi located on L arm appears healthy. Monitor for changes. * L82.1 Other seborrheic keratosis* Comments:* Reassurance. * L81.4 Other melanin hyperpigmentation* Comments:* Sunscreen use and sun protection discussed. Briefly discussed treatment with topical retinols and lasers. * Z85.828 Personal history of other malignant neoplasm of skin* Comments:* Continue to monitor for recurrence BCC. * Z08 Encounter for follow-up examination after completed treatmen* Comments:* See above. * Follow up:* Yearly/PRN - FSC Functional Status Description No Information Available Mental Status Description No Information Available Referrals Refer to Reason for Referral Status Appt Date Barbara Davidson FNP-C [address] [place] [address] [phone]
--- OUTSIDE RECORDS SUMMARY | 2021-08-13 08:31 | CCD | Continuity of Care Document ---
Author Author Nurses Sharon Yu Organization Unknown Address [address] [address] Phone Unavailable Problems Active Problems Provider Date [...] three times a day as needed pain. [id number] [facility] Gabapentin 600mg Tablets take [...] CPT Code Status Date Vaccine Lot # [id number] Given 07/13/2020 Influenza Virus Vaccine, Quadrivalent, Slit Virus, Im Use 3Y & Up [id number] Given 07/12/2019 Influenza Virus Vaccine, Quadrivalent, Slit Virus, Im Use 3Y & Up [id number] Vital Signs Date Vital Result Comment 06/28/2021 10:06am BP Systolic 126 mmHg BP Diastolic 76 mmHg Body Temperature 98.7 F Heart Rate 92 /min Respiratory Rate 12 /min Height 62 inches 5'2" Weight 136.00 lb [place] Body Weight 110 lb BMI (Body Mass Index) 24.9 kg/m2 O2 % BldC Oximetry 97 % 04/09/2021 9:25am BP Systolic 124 mmHg BP Diastolic 70 mmHg Body Temperature 98.2 F Heart Rate 60 /min Respiratory Rate 12 /min Height 62 inches 5'2" Weight 138.00 lb [place] Body Weight 110 lb BMI (Body Mass Index) 25.2 kg/m2 O2 % BldC Oximetry 96 % Results Test Acquired Date Facility Test Result H/L Range Note U/A DIP FPA 06/28/2021 [facility] Color Urine YELLOW Yellow Appearance CLEAR Clear Specific [place] 1.020 1.00-1.03 PH Urine 6.0 5.0-8.0 Glucose [...] eGFR 91 # Calc 6 eGFR Non-Afr. [place] 78 # Calc 7 Lipid Panel 03/19/2021 [...] HCT IS 5% LESS SOURCE FOR DATA: [employer] 1800 OPERATION MANUAL( AUTOMATED BLOOD COUNTS AND [...] CKD-EPI Procedures Date Code Description Status 06/28/2021 66676 Office/Outpatient Established Mo d MDM 30-39 Min Completed 04/09/2021 56979 Office/Outpatient Established Mo d MDM 30-39 Min Completed 03/19/2021 54306 Office/Outpatient Established Mo d MDM 30-39 Min Completed Medical Devices Description No Information Available Encounters Type Date Location Provider Dx Diagnosis Office Visit 06/28/2021 10:00a [facility] Fredi Bunch M. D. N39.0 Urinary tract infection, site not specified Office Visit 04/09/2021 9:15a [facility] Fredi Bunch M. D. Z85.828 Personal history of other malignant neoplasm of skin J01.90 Acute sinusitis, unspecified Office Visit 03/19/2021 10:20a [facility] Fredi Bunch M. D. E78.5 Hyperlipidemia, [...] Fredi jackson M.D. 03/19/2021 E78.5 [facility], [facility] 03/19/2021 I10 Essential (primary) hypertension Fredi Bunch M.D. 03/19/2021 I25.10 Atherosclerotic heart disease of [place] coronary artery with Fredi Bunch M.D. 03/19/2021 K21.9 Gastro-esophageal reflux disease without esophagitis Fredi Bunch M.D. Plan of Treatment No Information Available Functional Status Description No Information Available Mental Status Description No Information Available Referrals Refer to Dr Reason for Referral Status Appt Date [facility] f/u for basal cell ca Tr icare Auth [id number] Expiration 04/03/22 Sent [id number] [facility] [address] [place] [address] [phone] Sanju Kaplan M.D. screening cscope Sent 05/04/[address] [address] [phone]
--- OUTSIDE RECORDS SUMMARY | 2021-08-13 08:32 | CCD ---
Author Author [facility] Organization [facility] Address Unknown Phone Unavailable Care Team Providers Care Wild Life Manager Name Role Phone Joanne Vang Unavailable Unavailable Symenow, Joanne Brown PA Unavailable Unavailable Symenow, Joanne Brown PA Unavailable Unavailable SymenoJoanne carrasco PA Unavailable Unavailable SymenoJoanne carrasco PA Unavailable Unavailable SymenoJoanne carrasco PA Unavailable Unavailable SymenoJoanne carrasco PA Unavailable Unavailable SymenoJoanne carrasco PA Unavailable Unavailable Symenodanilo, Joanne Brown PA Unavailable Unavailable Symenodanilo, Joanne Brown PA Unavailable Unavailable Symenow, Joanne Brown PA Unavailable Unavailable Symenodanilo, Joanne Brown PA Unavailable Unavailable Symenodanilo, Joanne Brown PA Unavailable Unavailable Symenodanilo, Joanne Brown PA Unavailable Unavailable Symenodanilo, Joanne Brown PA Unavailable Unavailable Symenow, Joanne Brown PA Unavailable Unavailable Symenow, Joanne Brown PA Unavailable Unavailable Symenow, Joanne Stephanie PA Unavailable Unavailable Symenow, Joanne Stephanie PA Unavailable Unavailable Symenow, Joanne Stephanie PA Unavailable Unavailable Symenow, Joanne Stephanie PA Unavailable Unavailable Symenow, Joanne Stephanie PA Unavailable Unavailable Symenow, Joanne Stephanie PA Unavailable Unavailable Symenow, Joanne Stephanie PA Unavailable Unavailable Symenow, Joanne Stephanie PA Unavailable Unavailable Symenow, Joanne Stephanie PA Unavailable Unavailable Symenow, Joanne Stephanie PA Unavailable Unavailable Symenow, Joanne Stephanie PA Unavailable Unavailable Symenow, Joanne Stephanie PA Unavailable Unavailable Symenow, Joanne Stephanie PA Unavailable Unavailable Symenow, Joanne Stephanie PA Unavailable Unavailable Symenow, Joanne Stephanie PA Unavailable Unavailable Symenow, Joanne Stephanie PA Unavailable Unavailable Symenow, Joanne Stephanie PA Unavailable Unavailable Lucius ROQUE MD Unavailable Unavailable Lucius ROQUE MD Unavailable Unavailable Lucius ROQUE MD Unavailable Unavailable Lucius ROQUE MD Unavailable Unavailable Lucius ROQUE MD Unavailable Unavailable Lucius ROQUE MD Unavailable Unavailable Lucius ROUQE MD Unavailable Unavailable Lucius ORQUE MD Unavailable Unavailable Lucius ROQUE MD Unavailable Unavailable Lucius ROQUE MD Unavailable Unavailable Lucius ROQUE MD Unavailable Unavailable Lucius ROQUE MD Unavailable Unavailable Lucius ROQUE MD Unavailable Unavailable Lucius ROQUE MD Unavailable Unavailable Lucius ROQUE MD Unavailable Unavailable Lucius ROQUE MD Unavailable Unavailable Lucius ROQUE MD Unavailable Unavailable Lucius ROQEU MD Unavailable Unavailable Lucius ROQUE MD Unavailable Unavailable Lucius ROQUE MD Unavailable Unavailable Lucius ROQUE MD Unavailable Unavailable Lucius ROQUE MD Unavailable Unavailable Lucius ROQUE MD Unavailable Unavailable Lucius ROQUE MD Unavailable Unavailable Lucius ROQUE MD Unavailable Unavailable Lucius ROQUE MD Unavailable Unavailable Lucius ROQUE MD Unavailable Unavailable Lucius ROQUE MD Unavailable Unavailable Lucius ROQUE MD Unavailable Unavailable Lucius ROQUE MD Unavailable Unavailable Lucius ROQUE MD Unavailable Unavailable Lucius ROQUE MD Unavailable Unavailable Lucius ROQUE MD Unavailable Unavailable Lucius ROQUE MD Unavailable Unavailable Lucius ROQUE MD Unavailable Unavailable Lucius ROQUE MD Unavailable Unavailable Lucius ROQUE MD Unavailable Unavailable Lucius ROQUE MD Unavailable Unavailable Lucius ROQUE MD Unavailable Unavailable Lucius ROQUE MD Unavailable Unavailable Lucius ROQUE MD Unavailable Unavailable Lucius ROQUE MD Unavailable Unavailable Lucius ROQUE MD Unavailable Unavailable Lucius ROQUE MD Unavailable Unavailable Lucius ROQUE MD Unavailable Unavailable Lucius ROQUE MD Unavailable Unavailable Lucius ROQUE MD Unavailable Unavailable Lucius ROQUE MD Unavailable Unavailable Lucius ROQUE MD Unavailable Unavailable Lucius ROQUE MD Unavailable Unavailable Lucius ROQUE MD Unavailable Unavailable Lucius ROQUE MD Unavailable Unavailable Lucius ROQUE MD Unavailable Unavailable Lucius ROQUE MD Unavailable Unavailable Lucius ROQUE MD Unavailable Unavailable Lucius ROQUE MD Unavailable Unavailable Lucius ROQUE MD Unavailable Unavailable Lucius ROQUE MD Unavailable Unavailable Lucius ROQUE MD Unavailable Unavailable Lucius ROQUE MD Unavailable Unavailable Lucius ROQUE MD Unavailable Unavailable Lucius ROQUE MD Unavailable Unavailable Lucius ROQUE MD Unavailable Unavailable Lucius ROQUE MD Unavailable Unavailable Lucius ROQUE MD Unavailable Unavailable Lucius ROQUE MD Unavailable Unavailable Lucius ROQUE MD Unavailable Unavailable Lucius ROQUE MD Unavailable Unavailable Lucius ROQUE MD Unavailable Unavailable Lucius ROQUE MD Unavailable Unavailable Lucius ROQUE MD Unavailable Unavailable Lucius ROQUE MD Unavailable Unavailable Lucius ROQUE MD Unavailable Unavailable Lucius ROQUE MD Unavailable Unavailable Lucius ROQUE MD Unavailable Unavailable Lucius ROQUE MD Unavailable Unavailable Barraclough, M Amara PA Unavailable Unavailable Barraclough, M Amara PA Unavailable Unavailable Barraclough, M Amara PA Unavailable Unavailable Barraclough, M Amara PA Unavailable Unavailable Barraclough, M Amara PA Unavailable Unavailable Barraclough, M Amara PA Unavailable Unavailable Barraclough, M Amara PA Unavailable Unavailable Hegard, Barbara SEISMIC SURVEY ASSISTANT Unavailable Unavailable Hegard, Barbara SEISMIC SURVEY ASSISTANT Unavailable Unavailable Hegard, Barbara SEISMIC SURVEY ASSISTANT Unavailable Unavailable Hegard, Barbara SEISMIC SURVEY ASSISTANT Unavailable Unavailable Hegard, Barbara SEISMIC SURVEY ASSISTANT Unavailable Unavailable Hegard, Barbara SEISMIC SURVEY ASSISTANT Unavailable Unavailable Hegard, Barbara SEISMIC SURVEY ASSISTANT Unavailable Unavailable Hegard, Barbara SEISMIC SURVEY ASSISTANT Unavailable Unavailable Hegard, Barbara SEISMIC SURVEY ASSISTANT Unavailable Unavailable Hegard, Barbara SEISMIC SURVEY ASSISTANT Unavailable Unavailable Hegard, Barbara SEISMIC SURVEY ASSISTANT Unavailable Unavailable Hegard, Barbara SEISMIC SURVEY ASSISTANT Unavailable Unavailable Hegard, Barbara SEISMIC SURVEY ASSISTANT Unavailable Unavailable Hegard, Barbara SEISMIC SURVEY ASSISTANT Unavailable Unavailable Hegard, Barbara SEISMIC SURVEY ASSISTANT Unavailable Unavailable Hegard, Barbara SEISMIC SURVEY ASSISTANT Unavailable Unavailable Hegard, Barbara SEISMIC SURVEY ASSISTANT Unavailable Unavailable Jennifer, M Cody Unavailable Unavailable Jennifer, M Cody Unavailable Unavailable Jennifer, M Cody Unavailable Unavailable Jennifer, M Cody Unavailable Unavailable Jennifer, M Cody Unavailable Unavailable Jennifer, M Cody Unavailable Unavailable Jennifer, M Cody Unavailable Unavailable Jennifer, M Cody Unavailable Unavailable Jennifer, M Cody Unavailable Unavailable Re-disclosure Warning The records that you are about to access may contain information from federally-assisted alcohol or drug abuse programs. If such information is present, then the following federally mandated warning applies: This information has been disclosed to you from records protected by federal confidentiality rules (42 CFR part 2). The federal rules prohibit you from making any further disclosure of this information unless further disclosure is expressly permitted by the written consent of the person to whom it pertains or as otherwise permitted by 42 CFR part 2. A general authorization for the release of medical or other information is NOT sufficient for this purpose. The Federal rules restrict any use of the information to criminally investigate or prosecute any alcohol or drug abuse patient.The records that you are about to access may contain highly sensitive health information, the redisclosure of which is protected by Article 27-F of the [facility] Public Health law. If you continue you may have access to information: Regarding HIV / AIDS; Provided by facilities licensed or operated by the [facility] Office of Mental Health; or Provided by the [facility] Office for People With Developmental Disabilities. If such information is present, then the following [facility] mandated warning applies: This information has been disclosed to you from confidential records which are protected by state law. State law prohibits you from making any further disclosure of this information without the specific written consent of the person to whom it pertains, or as otherwise permitted by law. Any unauthorized further disclosure in violation of state law may result in a fine or mcfp sentence or both. A general authorization for the release of medical or other information is NOT sufficient authorization for further disc losure. Family History Family Member Name Family Member Gender Family Member Status Date o f Status Description Data Source(s) Unknown Unknown Problem [facility] ([facility] Unknown Female Problem [facility] ([facility] Unknown Female Problem [facility] Female Problem [facility] Unknown Female Problem [facility] Unknown Female Problem [facility] ([facility] Encounters Encounter Providers Location Date Indications Data Source(s ) Outpatient Attender: Barbara REDDYP Main Office 0 07/12/2021 08:45:00 AM EDT [facility] ([facility]) Outpatient Attender: Cody Rodriguez 06/30/2021 07:45:40 AM EDT - 06/30/2021 07:58:03 AM EDT [facility] ([facility] ) Outpatient Attender: MAXIMUS ROQUE MD [place] Office 10:00:00 AM EDT [facility] ([facility] Outpatient Attender: MAXIMUS ROQUE MD [place] Office 09:15:00 AM EDT [facility] ([facility] Outpatient Attender: Stephanie SON Main Office 03/25/2021 09:15:00 AM EDT [facility] ([facility]) Outpatient Attender: MAXIMUS ROQUE MD [place] Office 01/2021 10:20:00 AM EDT [facility] ([facility] Outpatient [address] [facility] [address] 02/11/2021 12:00:00 AM EDT eCW1 ([facility]) Outpatient Attender: MAXIMUS ROQUE MD [place] Office 07/2021 12:15:00 PM EST [facility] Outpatient Attender: Amara SON [facility] 09/29/2020 10:00:00 AM EST [facility] ([facility] Outpatient Attender: MAXIMUS ROQUE MD [place] Office 01:45:00 PM EDT [facility] ([facility] Immunizations Vaccine Date Status Description Data Source(s) New in 2012. IIV4 07/19/2021 01:54:00 PM EDT completed [facility] ([facility] COVID-19 VACCINE, MRNA-1273, LNP-S (MODERNA)/PF 01/26/2021 1 2:00:00 AM EDT completed [facility] COVID-19 VACCINE Moderna 01/26/2021 12:00:00 AM EDT completed [facility] Vaccine Series Complete: YESThis Data wa s Submitted to [facility]. COVID-19 VACCINE, MRNA-1273, LNP-S (MODERNA)/PF 12/25/2020 1 2:00:00 AM EST completed [facility] COVID-19 VACCINE Moderna 12/25/2020 12:00:00 AM EST completed [facility] Vaccine Series Complete: NOThis Data was Submitted to [facility]. New in 2012. IIV4 07/13/2020 02:15:00 PM EDT completed [facility] ([facility] Medications Medication Brand Name Start Date Product Form Dose Route Admi nistrative Instructions Pharmacy Instructions Status Indications Reaction Description Data Source(s) 150 mg 06/28/2021 12:00:00 AM EDT tablet 2 TAKE ONE TABLET BY MOUTH ONCE TAKE ONE TABLET BY MOUTH ONCE SOLD: 06/28/2021 [facility] 500 mg 06/28/2021 12:00:00 AM EDT tablet 6 TAKE ONE TABLET BY MOUTH TWO TIMES A DAY TAKE ONE TABLET BY MOUTH TWO TIMES A DAY SOLD: 06/28/2021 [facility] Ciprofloxacin 500 MG Oral Tablet [Cipro] Cipro 06/28/2021 12:00: 00 AM EDT ORAL active [facility] ([facility] Amoxicillin 875 MG / Clavulanate 125 MG Oral Tablet 87 5-125 mg AMOXICILLIN/POTASSIUM CLAV 06/15/2021 12:00:00 AM EDT tablet 14 TAKE ONE TABLET BY MOUTH TWICE A DAY FOR 7 DAYS TAKE ONE TABLET BY MOUTH TWICE A DAY FOR 7 DAYS SOLD: 06/15/2021 [facility] SUPREP BOWEL PREP KIT 17.5-3.13-1.6 gram SODIUM, POTASSIUM,M AG SULFATES 05/05/2021 12:00:00 AM EDT recon soln 354 TAKE PER 'S BOWEL PREP INSTRUCTIONS TAKE PER 'S BOWEL PREP INSTRUCTIONS SOLD: 05/10/2021 [facility] Magnesium Hydroxide 80 MG/ML Oral Suspension Milk Of Magnesi a 05/04/2021 12:00:00 AM EDT ORAL active M [facility] ([facility], ) Suprep Bowel Prep Kit Suprep Bowel Prep Kit 05/04/2021 12:00:00 AM EDT active [facility] ([facility], ) 250 mg 04/09/2021 12:00:00 AM EDT tablet 6 TAKE TWO TABLETS BY MOUTH AT ONCE ON THE FIRST DAY THEN TAKE ONE DAILY THEREAFTER TAKE TWO TABLETS BY MOUTH AT ONCE ON THE FIRST DAY THEN TAKE ONE DAILY THEREAFTER SOLD: 04/10/2021 [facility] 150 mg 04/09/2021 12:00:00 AM EDT tablet 2 TAKE ONE TABLET BY MOUTH ONCE TAKE ONE TABLET BY MOUTH ONCE SOLD: 04/10/2021 [facility] 50 mg 03/19/2021 12:00:00 AM EDT tablet 45 TAKE ONE TABLET BY MOUTH THREE TIMES A DAY NEEDED FOR PAIN, MAXIMUM DAILY DOSE = THREE TABLETS TAKE ONE TABLET BY MOUTH THREE TIMES A DAY NEEDED FOR PAIN, MAXIMUM DAILY DOSE = THREE TABLETS SOLD: 03/19/2021 [facility] 50 mg 03/19/2021 12:00:00 AM EDT tablet 45 TAKE ONE TABLET BY MOUTH THREE TIMES A DAY NEEDED FOR PAIN, MAXIMUM DAILY DOSE = THREE TABLETS TAKE ONE TABLET BY MOUTH THREE TIMES A DAY NEEDED FOR PAIN, MAXIMUM DAILY DOSE = THREE TABLETS SOLD: 06/15/2021 [facility] 50 mg 03/19/2021 12:00:00 AM EDT tablet 45 TAKE ONE TABLET BY MOUTH THREE TIMES A DAY NEEDED FOR PAIN, MAXIMUM DAILY DOSE = THREE TABLETS TAKE ONE TABLET BY MOUTH THREE TIMES A DAY NEEDED FOR PAIN, MAXIMUM DAILY DOSE = THREE TABLETS SOLD: 08/07/2021 [facility] 150 mg 11/25/2020 12:00:00 AM EST tablet 2 TAKE ONE TABLET BY MOUTH ONCE TAKE ONE TABLET BY MOUTH ONCE SOLD: 12/23/2020 [facility] Zithromax Z-Vitaliy Zithromax Z-Vitaliy 11/25/2020 12:00:00 AM EST ORAL active [facility] ([facility] Fluconazole 150 MG Oral Tablet [Diflucan] Diflucan 11/25/2020 1 2:00:00 AM EST ORAL active [facility] ([facility] 250 mg 11/25/2020 12:00:00 AM EST tablet 6 TAKE TWO TABLETS BY MOUTH AT ONCE ON THE FIRST DAY THEN TAKE ONE DAILY THEREAFTER TAKE TWO TABLETS BY MOUTH AT ONCE ON THE FIRST DAY THEN TAKE ONE DAILY THEREAFTER SOLD: 11/26/2020 [facility] 150 mg 11/25/2020 12:00:00 AM EST tablet 2 TAKE ONE TABLET BY MOUTH ONCE TAKE ONE TABLET BY MOUTH ONCE SOLD: 11/26/2020 [facility] 150 mg 09/29/2020 12:00:00 AM EST tablet 2 TAKE 1 TABLET BY MOUTH NOW AND 1 TABLET BY MOUTH IN 7 DAYS TAKE 1 TABLET BY MOUTH NOW AND 1 TABLET BY MOUTH IN 7 DAYS SOLD: 09/29/2020 [facility] 500 mg 09/29/2020 12:00:00 AM EST capsule 14 TAKE ONE CAPSULE BY MOUTH TWICE A DAY FOR 7 DAYS TAKE ONE CAPSULE BY MOUTH TWICE A DAY FOR 7 DAYS SOLD: 09/29/2020 [facility] Fluconazole 150 MG Oral Tablet [Diflucan] Diflucan 09/29/2020 1 2:00:00 AM EST ORAL completed [facility] ([facility] Amoxicillin 500 MG Oral Capsule Amoxicillin 09/29/2020 12:00:00 AM EST ORAL completed [facility] ([facility] 250 mg 07/06/2020 12:00:00 AM EDT tablet 6 TAKE TWO TABLETS BY MOUTH AT ONCE ON THE FIRST DAY THEN TAKE ONE DAILY THEREAFTER TAKE TWO TABLETS BY MOUTH AT ONCE ON THE FIRST DAY THEN TAKE ONE DAILY THEREAFTER SOLD: 07/06/2020 [facility] 50 mg 07/06/2020 12:00:00 AM EDT tablet 45 TAKE ONE TABLET BY MOUTH THREE TIMES A DAY NEEDED FOR PAIN, MAXIMUM DAILY DOSE = THREE TABLETS TAKE ONE TABLET BY MOUTH THREE TIMES A DAY NEEDED FOR PAIN, MAXIMUM DAILY DOSE = THREE TABLETS SOLD: 07/06/2020 [facility] 150 mg 07/06/2020 12:00:00 AM EDT tablet 2 TAKE ONE TABLET BY MOUTH ONCE TAKE ONE TABLET BY MOUTH ONCE SOLD: 08/29/2020 [facility] 150 mg 07/06/2020 12:00:00 AM EDT tablet 2 TAKE ONE TABLET BY MOUTH ONCE TAKE ONE TABLET BY MOUTH ONCE SOLD: 07/06/2020 [facility] 50 mg 07/06/2020 12:00:00 AM EDT tablet 45 TAKE ONE TABLET BY MOUTH THREE TIMES A DAY NEEDED FOR PAIN, MAXIMUM DAILY DOSE = THREE TABLETS TAKE ONE TABLET BY MOUTH THREE TIMES A DAY NEEDED FOR PAIN, MAXIMUM DAILY DOSE = THREE TABLETS SOLD: 09/25/2020 [facility] Fluconazole 150 MG Oral Tablet [Diflucan] Diflucan 07/06/2020 1 2:00:00 AM EDT ORAL completed [facility] ([facility] Zithromax Z-Vitaliy Zithromax Z-Vitaliy 07/06/2020 12:00:00 AM EDT ORAL completed [facility] ([facility] 50 mg 07/06/2020 12:00:00 AM EDT tablet 45 TAKE ONE TABLET BY MOUTH THREE TIMES A DAY NEEDED FOR PAIN, MAXIMUM DAILY DOSE = THREE TABLETS TAKE ONE TABLET BY MOUTH THREE TIMES A DAY NEEDED FOR PAIN, MAXIMUM DAILY DOSE = THREE TABLETS SOLD: 12/23/2020 [facility] 50 mg 07/06/2020 12:00:00 AM EDT tablet 45 TAKE ONE TABLET BY MOUTH THREE TIMES A DAY NEEDED FOR PAIN, MAXIMUM DAILY DOSE = THREE TABLETS TAKE ONE TABLET BY MOUTH THREE TIMES A DAY NEEDED FOR PAIN, MAXIMUM DAILY DOSE = THREE TABLETS SOLD: 11/21/2020 [facility] Insurance Providers Payer name Policy type / Coverage type Policy ID Covered republican ID Covered republican's relationship to antony Policy Antony Plan Information BEV LOBATO/BEV [id number] Spouse [id number] [facility] [id number] [facility] [id number] RPR- Needs Payer Match [id number] Spouse [id number] [facility] Commercial [id number] [facility] Health Maintenance Organization (HMO) [id number] Family Dependent Health [facility] Commercial [id number] Health [facility] Commercial [id number] Health [facility] Commercial [id number] [facility] Commercial [id number] Health [facility] Commercial [id number] [facility] [id number] 2 [id number] [employer] Health Maintenance Organization (O) [id number] Family Dependent 5 [id number] [facility] REGION [id number] [facility] Region Claim Commercial [id number] Family Dependent [id number] [facility] Region Claim Commercial [id number] Family Dependent [id number] [facility] O [id number] S [id number] [facility] Region Claim Commercial [id number] Family Dependent [id number] ANSI-Not a Secondary Insurance [id number] Claim Commercial [id number] Family Dependent [id number] [employer] Health Maintenance Organization (O) [id number] Family Dependent [id number] [employer] Health Maintenance Organization ([facility]) [id number] Family Dependent [id number] [facility] O [id number] S [id number] [facility] ([facility]) [id number] Family Dependent [id number] [facility] EMERGENCY DEPARTMENT AD O [id number] S [id number] Problems, Conditions, and Diagnoses No Information Surgeries/Procedures Procedure Description Date Indications Data Source(s) OFFICE OUTPATIENT VISIT 25 MINUTES 07/12/2021 12:00:00 AM EDT [facility] ([facility]) OFFICE OUTPATIENT VISIT 25 MINUTES 06/28/2021 12:00:00 AM EDT [facility] ([facility] OFFICE OUTPATIENT VISIT 25 MINUTES 04/09/2021 12:00:00 AM EDT [facility] ([facility] ECG ROUTINE ECG W/LEAST 12 LDS W/I&R 03/25/2021 12:00: 00 AM EDT [facility] ([facility]) OFFICE OUTPATIENT VISIT 25 MINUTES 03/19/2021 12:00:00 AM EDT [facility] ([facility] OFFICE OUTPATIENT VISIT 25 MINUTES 11/25/2020 12:00:00 AM EST [facility] ([facility] Results ID Date Data Source [id number] 06/30/2021 08:00:00 AM EDT [facility] Name Value Range Interpretation Code Description Data Chen rce(s) Supporting Document(s) SARS-CoV-2 RNA Resp Ql STANLEY+probe NOT DETECTED [facility] This lab was ordered by MANI aguirre and reported by MANI Hobson. ID Date Data Source [id number] 06/28/2021 10:19:00 AM EDT [facility] ([facility] Name Value Range Interpretation Code Description Data Chen rce(s) Supporting Document(s) Specific [place] 1.020 1.00-1.03 [facility] ([facility] Appearance of Urine Laboratory test result [facility] ([facility] Color Urine Laboratory test result M EDENT ([facility] Bilirubin.total [Presence] in Urine by Test strip Laboratory test res ult [facility] ([facility] PH Urine 6.0 5.0-8.0 [facility] ([facility] Glucose Urine Laboratory test result [facility] ([facility] Protein Urine Laboratory test result Above high normal [facility] ([facility] Ketones Laboratory test result [facility] ([facility] Blood Urine Laboratory test result Above high normal [facility] ([facility] Leukocytes Laboratory test result Above high normal [facility] ([facility] Urobilinogen 0.2 EU/dl 0.2-1.0 [facility] Nitrite Laboratory test result [facility] ([facility] ID Date Data Source [id number] 06/28/2021 10:18:00 AM EDT [facility] ([facility] Name Value Range Interpretation Code Description Data Chen rce(s) Supporting Document(s) Urine Culture, Routine Laboratory test result Ab normal (applies to non-numeric results) [facility] ([facility] ) SRC:URINE Antimicrobial Susceptibility Laboratory test result [facility] ([facility] SRC:URINE Bacteria identified in Urine by Culture Laboratory test result Abnormal (applies to non-numeric results) [facility] ([facility] SRC:URINE ID Date Data Source [id number] 06/15/2021 12:00:00 AM EDT [facility] Name Value Range Interpretation Code Description Data Chen rce(s) Supporting Document(s) SARS-CoV2 Rapid Antigen Negative [facility] This lab was ordered by [facility] and reported by [facility]. ID Date Data Source [id number] 06/12/2021 12:00:00 AM EDT [facility] Name Value Range Interpretation Code Description Data Chen rce(s) Supporting Document(s) PCR NEGATIVE [facility] This lab was ordered by [facility] and reported by [facility]. ID Date Data Source [id number] 05/12/2021 12:00:00 AM EDT [facility] Name Value Range Interpretation Code Description Data Chen rce(s) Supporting Document(s) pcr negative [facility] This lab was ordered by [facility] are and reported by [facility]. ID Date Data Source [id number] 03/19/2021 10:42:00 AM EDT [facility] ([facility] Name Value Range Interpretation Code Description Data Chen rce(s) Supporting Document(s) Trig 124 mg/dL 40-200 [facility] NORMAL RANGES Age WBC RBC HGB HCT [...] HCT IS 5% LESS SOURCE FOR DATA: Alex and Ani DYN 1800 OPERATION MANUAL( AUTOMATED BLOOD COUNTS AND [...] DESIRABLE: <130 MG/DL <110 MG/DL BORDERLINE-HIGH RISK: 130- 159 MG/DL 110-129 MG/DL HIGH RISK: >160 MG/DL >130 MG/DL *CHILDREN AND ADOLESCENTS REPRESENTS INDIVIDUALA AGED 2-19 YEARS EXCLUSIVE. Chol 157 mg/dL 0-200 [facility] NORMAL RANGES Age WBC RBC HGB HCT [...] HCT IS 5% LESS SOURCE FOR DATA: [employer] 1800 OPERATION MANUAL( AUTOMATED BLOOD COUNTS AND [...] DESIRABLE: <130 MG/DL <110 MG/DL BORDERLINE-HIGH RISK: 130- 159 MG/DL 110-129 MG/DL HIGH RISK: >160 MG/DL >130 MG/DL *CHILDREN AND ADOLESCENTS REPRESENTS INDIVIDUALA AGED 2-19 YEARS EXCLUSIVE. LDL_C 85 Calc 75-129 [facility] ([facility] NORMAL RANGES Age WBC RBC HGB HCT [...] HCT IS 5% LESS SOURCE FOR DATA: [employer] 1800 OPERATION MANUAL( AUTOMATED BLOOD COUNTS AND [...] DESIRABLE: <130 MG/DL <110 MG/DL BORDERLINE-HIGH RISK: 130- 159 MG/DL 110-129 MG/DL HIGH RISK: >160 MG/DL >130 MG/DL *CHILDREN AND ADOLESCENTS REPRESENTS INDIVIDUALA AGED 2-19 YEARS EXCLUSIVE. Cholesterol in HDL [Mass/volume] in Serum or Plasma 47 mg/dL 45-65 [facility] ([facility] NORMAL RANGES Age WBC RBC HGB HCT [...] HCT IS 5% LESS SOURCE FOR DATA: [employer]YN 1800 OPERATION MANUAL( AUTOMATED BLOOD COUNTS AND [...] DESIRABLE: <130 MG/DL <110 MG/DL BORDERLINE-HIGH RISK: 130- 159 MG/DL 110-129 MG/DL HIGH RISK: >160 MG/DL >130 MG/DL *CHILDREN AND ADOLESCENTS REPRESENTS INDIVIDUALA AGED 2-19 YEARS EXCLUSIVE. Cho/HDL Ratio 3.3 Calc [facility] NORMAL RANGES Age WBC RBC HGB HCT [...] HCT IS 5% LESS SOURCE FOR DATA: [employer] 1800 OPERATION MANUAL( AUTOMATED BLOOD COUNTS AND [...] DESIRABLE: <130 MG/DL <110 MG/DL BORDERLINE-HIGH RISK: 130- 159 MG/DL 110-129 MG/DL HIGH RISK: >160 MG/DL >130 MG/DL *CHILDREN AND ADOLESCENTS REPRESENTS INDIVIDUALA AGED 2-19 YEARS EXCLUSIVE. ID Date Data Source [id number] 03/19/2021 10:42:00 AM EDT SHAK[facility] ([facility] Name Value Range Interpretation Code Description Data Chen rce(s) Supporting Document(s) BUN 10 mg/dL 8- [facility] NORMAL RANGES Age WBC RBC HGB HCT [...] HCT IS 5% LESS SOURCE FOR DATA: [employer] 1800 OPERATION MANUAL( AUTOMATED BLOOD COUNTS AND [...] DESIRABLE: <130 MG/DL <110 MG/DL BORDERLINE-HIGH RISK: 130- 159 MG/DL 110-129 MG/DL HIGH RISK: >160 MG/DL >130 MG/DL *CHILDREN AND ADOLESCENTS REPRESENTS INDIVIDUALA AGED 2-19 YEARS EXCLUSIVE. Glu 90 mg/dL 70-110 [facility] ([facility] NORMAL RANGES Age WBC RBC HGB HCT [...] HCT IS 5% LESS SOURCE FOR DATA: [employer] 1800 OPERATION MANUAL( AUTOMATED BLOOD COUNTS AND [...] DESIRABLE: <130 MG/DL <110 MG/DL BORDERLINE-HIGH RISK: 130- 159 MG/DL 110-129 MG/DL HIGH RISK: >160 MG/DL >130 MG/DL *CHILDREN AND ADOLESCENTS REPRESENTS INDIVIDUALA AGED 2-19 YEARS EXCLUSIVE. Creat 0.8 mg/dL 0.5-1.0 [facility] ([facility] NORMAL RANGES Age WBC RBC HGB HCT [...] HCT IS 5% LESS SOURCE FOR DATA: [employer] 1800 OPERATION MANUAL( AUTOMATED BLOOD COUNTS AND [...] DESIRABLE: <130 MG/DL <110 MG/DL BORDERLINE-HIGH RISK: 130- 159 MG/DL 110-129 MG/DL HIGH RISK: >160 MG/DL >130 MG/DL *CHILDREN AND ADOLESCENTS REPRESENTS INDIVIDUALA AGED 2-19 YEARS EXCLUSIVE. BUN/Creatinine Ratio 12.7 CALC [facility] ([facility] NORMAL RANGES Age WBC RBC HGB HCT [...] HCT IS 5% LESS SOURCE FOR DATA: [employer] 1800 OPERATION MANUAL( AUTOMATED BLOOD COUNTS AND [...] DESIRABLE: <130 MG/DL <110 MG/DL BORDERLINE-HIGH RISK: 130- 159 MG/DL 110-129 MG/DL HIGH RISK: >160 MG/DL >130 MG/DL *CHILDREN AND ADOLESCENTS REPRESENTS INDIVIDUALA AGED 2-19 YEARS EXCLUSIVE. Na 140 mmol/L 136-145 [facility] ([facility] NORMAL RANGES Age WBC RBC HGB HCT [...] HCT IS 5% LESS SOURCE FOR DATA: [employer] 1800 OPERATION MANUAL( AUTOMATED BLOOD COUNTS AND [...] DESIRABLE: <130 MG/DL <110 MG/DL BORDERLINE-HIGH RISK: 130- 159 MG/DL 110-129 MG/DL HIGH RISK: >160 MG/DL >130 MG/DL *CHILDREN AND ADOLESCENTS REPRESENTS INDIVIDUALA AGED 2-19 YEARS EXCLUSIVE. K 3.8 mmol/L 3.5-5.1 [facility] ([facility] NORMAL RANGES Age WBC RBC HGB HCT [...] HCT IS 5% LESS SOURCE FOR DATA: [employer] 1800 OPERATION MANUAL( AUTOMATED BLOOD COUNTS AND [...] DESIRABLE: <130 MG/DL <110 MG/DL BORDERLINE-HIGH RISK: 130- 159 MG/DL 110-129 MG/DL HIGH RISK: >160 MG/DL >130 MG/DL *CHILDREN AND ADOLESCENTS REPRESENTS INDIVIDUALA AGED 2-19 YEARS EXCLUSIVE. CL 99.9 mmol/L 98.0-107.0 [facility] ([facility] NORMAL RANGES Age WBC RBC HGB HCT [...] HCT IS 5% LESS SOURCE FOR DATA: KELSEY DYN 1800 OPERATION MANUAL( AUTOMATED BLOOD COUNTS AND [...] DESIRABLE: <130 MG/DL <110 MG/DL BORDERLINE-HIGH RISK: 130- 159 MG/DL 110-129 MG/DL HIGH RISK: >160 MG/DL >130 MG/DL *CHILDREN AND ADOLESCENTS REPRESENTS INDIVIDUALA AGED 2-19 YEARS EXCLUSIVE. CA 9.4 mg/dL 8.6-10.2 [facility] ([facility] NORMAL RANGES Age WBC RBC HGB HCT [...] HCT IS 5% LESS SOURCE FOR DATA: [employer] 1800 OPERATION MANUAL( AUTOMATED BLOOD COUNTS AND [...] DESIRABLE: <130 MG/DL <110 MG/DL BORDERLINE-HIGH RISK: 130- 159 MG/DL 110-129 MG/DL HIGH RISK: >160 MG/DL >130 MG/DL *CHILDREN AND ADOLESCENTS REPRESENTS INDIVIDUALA AGED 2-19 YEARS EXCLUSIVE. Co2 26.8 mmol/L 22.0-29.0 [facility] ([facility] NORMAL RANGES Age WBC RBC HGB HCT [...] HCT IS 5% LESS SOURCE FOR DATA: [employer] 1800 OPERATION MANUAL( AUTOMATED BLOOD COUNTS AND [...] DESIRABLE: <130 MG/DL <110 MG/DL BORDERLINE-HIGH RISK: 130- 159 MG/DL 110-129 MG/DL HIGH RISK: >160 MG/DL >130 MG/DL *CHILDREN AND ADOLESCENTS REPRESENTS INDIVIDUALA AGED 2-19 YEARS EXCLUSIVE. Alb 4.7 g/dL 3.4-4.8 [facility] ([facility] NORMAL RANGES Age WBC RBC HGB HCT [...] HCT IS 5% LESS SOURCE FOR DATA: Alex [employer] 1800 OPER[employer] MANUAL( AUTOMATED BLOOD COUNTS AND [...] DESIRABLE: <130 MG/DL <110 MG/DL BORDERLINE-HIGH RISK: 130- 159 MG/DL 110-129 MG/DL HIGH RISK: >160 MG/DL >130 MG/DL *CHILDREN AND ADOLESCENTS REPRESENTS INDIVIDUALA AGED 2-19 YEARS EXCLUSIVE. A/G Ratio 2.5 CALC [facility] ([facility] NORMAL RANGES Age WBC RBC HGB HCT [...] HCT IS 5% LESS SOURCE FOR DATA: [employer] 1800 OPERATION MANUAL( AUTOMATED BLOOD COUNTS AND [...] DESIRABLE: <130 MG/DL <110 MG/DL BORDERLINE-HIGH RISK: 130- 159 MG/DL 110-129 MG/DL HIGH RISK: >160 MG/DL >130 MG/DL *CHILDREN AND ADOLESCENTS REPRESENTS INDIVIDUALA AGED 2-19 YEARS EXCLUSIVE. TP 6.5 g/dL 6.6-8.7 Below low normal [facility] ( [facility] NORMAL RANGES Age WBC RBC HGB HCT [...] HCT IS 5% LESS SOURCE FOR DATA: [employer] 1800 OPERATION MANUAL( AUTOMATED BLOOD COUNTS AND [...] DESIRABLE: <130 MG/DL <110 MG/DL BORDERLINE-HIGH RISK: 130- 159 MG/DL 110-129 MG/DL HIGH RISK: >160 MG/DL >130 MG/DL *CHILDREN AND ADOLESCENTS REPRESENTS INDIVIDUALA AGED 2-19 YEARS EXCLUSIVE. Globulin 1.9 CALC [facility] ([facility] NORMAL RANGES Age WBC RBC HGB HCT [...] HCT IS 5% LESS SOURCE FOR DATA: [employer] 1800 OPERATION MANUAL( AUTOMATED BLOOD COUNTS AND [...] DESIRABLE: <130 MG/DL <110 MG/DL BORDERLINE-HIGH RISK: 130- 159 MG/DL 110-129 MG/DL HIGH RISK: >160 MG/DL >130 MG/DL *CHILDREN AND ADOLESCENTS REPRESENTS INDIVIDUALA AGED 2-19 YEARS EXCLUSIVE. Alp 89.8 U/L 35-129 [facility] ([facility] NORMAL RANGES Age WBC RBC HGB HCT [...] HCT IS 5% LESS SOURCE FOR DATA: [employer] 1800 OPERATION MANUAL( AUTOMATED BLOOD COUNTS AND [...] DESIRABLE: <130 MG/DL <110 MG/DL BORDERLINE-HIGH RISK: 130- 159 MG/DL 110-129 MG/DL HIGH RISK: >160 MG/DL >130 MG/DL *CHILDREN AND ADOLESCENTS REPRESENTS INDIVIDUALA AGED 2-19 YEARS EXCLUSIVE. Ast (Sgot) 23 U/L 0-40 [facility] ([facility] NORMAL RANGES Age WBC RBC HGB HCT [...] HCT IS 5% LESS SOURCE FOR DATA: [employer] 1800 OPERATION MANUAL( AUTOMATED BLOOD COUNTS AND [...] DESIRABLE: <130 MG/DL <110 MG/DL BORDERLINE-HIGH RISK: 130- 159 MG/DL 110-129 MG/DL HIGH RISK: >160 MG/DL >130 MG/DL *CHILDREN AND ADOLESCENTS REPRESENTS INDIVIDUALA AGED 2-19 YEARS EXCLUSIVE. Alt (SGPT) 17 U/L 0-41 [facility] ([facility] NORMAL RANGES Age WBC RBC HGB HCT [...] HCT IS 5% LESS SOURCE FOR DATA: [employer] 1800 OPERATION MANUAL( AUTOMATED BLOOD COUNTS AND [...] DESIRABLE: <130 MG/DL <110 MG/DL BORDERLINE-HIGH RISK: 130- 159 MG/DL 110-129 MG/DL HIGH RISK: >160 MG/DL >130 MG/DL *CHILDREN AND ADOLESCENTS REPRESENTS INDIVIDUALA AGED 2-19 YEARS EXCLUSIVE. Tbili 0.52 mg/dL 0.0-1.2 [facility] ([facility] NORMAL RANGES Age WBC RBC HGB HCT [...] HCT IS 5% LESS SOURCE FOR DATA: [employer] 1800 OPERATION MANUAL( AUTOMATED BLOOD COUNTS AND [...] DESIRABLE: <130 MG/DL <110 MG/DL BORDERLINE-HIGH RISK: 130- 159 MG/DL 110-129 MG/DL HIGH RISK: >160 MG/DL >130 MG/DL *CHILDREN AND ADOLESCENTS REPRESENTS INDIVIDUALA AGED 2-19 YEARS EXCLUSIVE. Anion Gap 18 mmol/L [facility] ([facility] NORMAL RANGES Age WBC RBC HGB HCT [...] HCT IS 5% LESS SOURCE FOR DATA: [employer] 1800 OPERATION MANUAL( AUTOMATED BLOOD COUNTS AND [...] DESIRABLE: <130 MG/DL <110 MG/DL BORDERLINE-HIGH RISK: 130- 159 MG/DL 110-129 MG/DL HIGH RISK: >160 MG/DL >130 MG/DL *CHILDREN AND ADOLESCENTS REPRESENTS INDIVIDUALA AGED 2-19 YEARS EXCLUSIVE. Osmolality-Calculated 278.6 CALC [facility] ([facility] NORMAL RANGES Age WBC RBC HGB HCT [...] HCT IS 5% LESS SOURCE FOR DATA: [employer] 1800 OPERATION MANUAL( AUTOMATED BLOOD COUNTS AND [...] DESIRABLE: <130 MG/DL <110 MG/DL BORDERLINE-HIGH RISK: 130- 159 MG/DL 110-129 MG/DL HIGH RISK: >160 MG/DL >130 MG/DL *CHILDREN AND ADOLESCENTS REPRESENTS INDIVIDUALA AGED 2-19 YEARS EXCLUSIVE. eGFR 91 # [facility] ( [facility] NORMAL RANGES Age WBC RBC HGB HCT [...] HCT IS 5% LESS SOURCE FOR DATA: [employer] 1800 OPERATION MANUAL( AUTOMATED BLOOD COUNTS AND [...] DESIRABLE: <130 MG/DL <110 MG/DL BORDERLINE-HIGH RISK: 130- 159 MG/DL 110-129 MG/DL HIGH RISK: >160 MG/DL >130 MG/DL *CHILDREN AND ADOLESCENTS REPRESENTS INDIVIDUALA AGED 2-19 YEARS EXCLUSIVE. eGFR Non-Afr. Turkmen 78 # [facility] ([facility] NORMAL RANGES Age WBC RBC HGB HCT [...] HCT IS 5% LESS SOURCE FOR DATA: [employer] 1800 OPERATION MANUAL( AUTOMATED BLOOD COUNTS AND [...] DESIRABLE: <130 MG/DL <110 MG/DL BORDERLINE-HIGH RISK: 130- 159 MG/DL 110-129 MG/DL HIGH RISK: >160 MG/DL >130 MG/DL *CHILDREN AND ADOLESCENTS REPRESENTS INDIVIDUALA AGED 2-19 YEARS EXCLUSIVE. ID Date Data Source [id number] 03/19/2021 10:42:00 AM EDT [facility] ([facility] Name Value Range Interpretation Code Description Data Chen rce(s) Supporting Document(s) WBC 5.8 10E3/uL 4.1-10.9 [facility] ([facility] NORMAL RANGES Age WBC RBC HGB HCT [...] HCT IS 5% LESS SOURCE FOR DATA: [employer] 1800 OPERATION MANUAL( AUTOMATED BLOOD COUNTS AND [...] DESIRABLE: <130 MG/DL <110 MG/DL BORDERLINE-HIGH RISK: 130- 159 MG/DL 110-129 MG/DL HIGH RISK: >160 MG/DL >130 MG/DL *CHILDREN AND ADOLESCENTS REPRESENTS INDIVIDUALA AGED 2-19 YEARS EXCLUSIVE. HCT 40.8 % 37.0-51.0 [facility] ([facility] NORMAL RANGES Age WBC RBC HGB HCT [...] HCT IS 5% LESS SOURCE FOR DATA: [employer] 1800 OPERATION MANUAL( AUTOMATED BLOOD COUNTS AND [...] DESIRABLE: <130 MG/DL <110 MG/DL BORDERLINE-HIGH RISK: 130- 159 MG/DL 110-129 MG/DL HIGH RISK: >160 MG/DL >130 MG/DL *CHILDREN AND ADOLESCENTS REPRESENTS INDIVIDUALA AGED 2-19 YEARS EXCLUSIVE. RBC 4.57 10E6/uL 4.20-6.30 [facility] ([facility] NORMAL RANGES Age WBC RBC HGB HCT [...] HCT IS 5% LESS SOURCE FOR DATA: [employer] 1800 [employer]( AUTOMATED BLOOD COUNTS AND [...] DESIRABLE: <130 MG/DL <110 MG/DL BORDERLINE-HIGH RISK: 130- 159 MG/DL 110-129 MG/DL HIGH RISK: >160 MG/DL >130 MG/DL *CHILDREN AND ADOLESCENTS REPRESENTS INDIVIDUALA AGED 2-19 YEARS EXCLUSIVE. HGB 13.7 g/dL 12.0-18.0 [facility] ([facility] NORMAL RANGES Age WBC RBC HGB HCT [...] HCT IS 5% LESS SOURCE FOR DATA: [employer] 1800 OPERATION MANUAL( AUTOMATED BLOOD COUNTS AND [...] DESIRABLE: <130 MG/DL <110 MG/DL BORDERLINE-HIGH RISK: 130- 159 MG/DL 110-129 MG/DL HIGH RISK: >160 MG/DL >130 MG/DL *CHILDREN AND ADOLESCENTS REPRESENTS INDIVIDUALA AGED 2-19 YEARS EXCLUSIVE. MCHC 33.6 g/dL 31.0-36.0 [facility] ([facility] NORMAL RANGES Age WBC RBC HGB HCT [...] HCT IS 5% LESS SOURCE FOR DATA: [employer] 1800 OPERATION MANUAL( AUTOMATED BLOOD COUNTS AND [...] DESIRABLE: <130 MG/DL <110 MG/DL BORDERLINE-HIGH RISK: 130- 159 MG/DL 110-129 MG/DL HIGH RISK: >160 MG/DL >130 MG/DL *CHILDREN AND ADOLESCENTS REPRESENTS INDIVIDUALA AGED 2-19 YEARS EXCLUSIVE. MCV 89.3 fL 80.0-97.0 [facility] ([facility] NORMAL RANGES Age WBC RBC HGB HCT [...] HCT IS 5% LESS SOURCE FOR DATA: [employer] 1800 OPERATION MANUAL( AUTOMATED BLOOD COUNTS AND [...] DESIRABLE: <130 MG/DL <110 MG/DL BORDERLINE-HIGH RISK: 130- 159 MG/DL 110-129 MG/DL HIGH RISK: >160 MG/DL >130 MG/DL *CHILDREN AND ADOLESCENTS REPRESENTS INDIVIDUALA AGED 2-19 YEARS EXCLUSIVE. MCH 30.0 pg 26.0-32.0 [facility] ([facility] NORMAL RANGES Age WBC RBC HGB HCT [...] HCT IS 5% LESS SOURCE FOR DATA: [employer] 1800 OPERATION MANUAL( AUTOMATED BLOOD COUNTS AND [...] DESIRABLE: <130 MG/DL <110 MG/DL BORDERLINE-HIGH RISK: 130- 159 MG/DL 110-129 MG/DL HIGH RISK: >160 MG/DL >130 MG/DL *CHILDREN AND ADOLESCENTS REPRESENTS INDIVIDUALA AGED 2-19 YEARS EXCLUSIVE. RDW-CV 12.6 % 11.5-14.5 [facility] ([facility] NORMAL RANGES Age WBC RBC HGB HCT [...] HCT IS 5% LESS SOURCE FOR DATA: [employer] 1800 OPERATION MANUAL( AUTOMATED BLOOD COUNTS AND [...] DESIRABLE: <130 MG/DL <110 MG/DL BORDERLINE-HIGH RISK: 130- 159 MG/DL 110-129 MG/DL HIGH RISK: >160 MG/DL >130 MG/DL *CHILDREN AND ADOLESCENTS REPRESENTS INDIVIDUALA AGED 2-19 YEARS EXCLUSIVE. PLT 220 10E3/uL 140-440 [facility] ([facility] NORMAL RANGES Age WBC RBC HGB HCT [...] HCT IS 5% LESS SOURCE FOR DATA: [employer] 1800 OPERATION MANUAL( AUTOMATED BLOOD COUNTS AND [...] DESIRABLE: <130 MG/DL <110 MG/DL BORDERLINE-HIGH RISK: 130- 159 MG/DL 110-129 MG/DL HIGH RISK: >160 MG/DL >130 MG/DL *CHILDREN AND ADOLESCENTS REPRESENTS INDIVIDUALA AGED 2-19 YEARS EXCLUSIVE. Lym% 44.5 % 10.0-58.5 [facility] ([facility] NORMAL RANGES Age WBC RBC HGB HCT [...] HCT IS 5% LESS SOURCE FOR DATA: [employer] 1800 OPERATION MANUAL( AUTOMATED BLOOD COUNTS AND [...] DESIRABLE: <130 MG/DL <110 MG/DL BORDERLINE-HIGH RISK: 130- 159 MG/DL 110-129 MG/DL HIGH RISK: >160 MG/DL >130 MG/DL *CHILDREN AND ADOLESCENTS REPRESENTS INDIVIDUALA AGED 2-19 YEARS EXCLUSIVE. Lym# 2.6 10E3/uL 0.6-4.1 [facility] ([facility] NORMAL RANGES Age WBC RBC HGB HCT [...] HCT IS 5% LESS SOURCE FOR DATA: [employer] 1800 OPERATION MANUAL( AUTOMATED BLOOD COUNTS AND [...] DESIRABLE: <130 MG/DL <110 MG/DL BORDERLINE-HIGH RISK: 130- 159 MG/DL 110-129 MG/DL HIGH RISK: >160 MG/DL >130 MG/DL *CHILDREN AND ADOLESCENTS REPRESENTS INDIVIDUALA AGED 2-19 YEARS EXCLUSIVE. Neut% 45.0 % 37.0-92.0 [facility] ([facility] NORMAL RANGES Age WBC RBC HGB HCT [...] HCT IS 5% LESS SOURCE FOR DATA: [employer] 1800 OPERATION MANUAL( AUTOMATED BLOOD COUNTS AND [...] DESIRABLE: <130 MG/DL <110 MG/DL BORDERLINE-HIGH RISK: 130- 159 MG/DL 110-129 MG/DL HIGH RISK: >160 MG/DL >130 MG/DL *CHILDREN AND ADOLESCENTS REPRESENTS INDIVIDUALA AGED 2-19 YEARS EXCLUSIVE. MXD% 10.5 % 0.1-24.0 [facility] ([facility] NORMAL RANGES Age WBC RBC HGB HCT [...] HCT IS 5% LESS SOURCE FOR DATA: [employer] 1800 OPERATION MANUAL( AUTOMATED BLOOD COUNTS AND [...] DESIRABLE: <130 MG/DL <110 MG/DL BORDERLINE-HIGH RISK: 130- 159 MG/DL 110-129 MG/DL HIGH RISK: >160 MG/DL >130 MG/DL *CHILDREN AND ADOLESCENTS REPRESENTS INDIVIDUALA AGED 2-19 YEARS EXCLUSIVE. Neut# 2.6 % 2.0-7.8 [facility] ([facility] NORMAL RANGES Age WBC RBC HGB HCT [...] HCT IS 5% LESS SOURCE FOR DATA: [employer] 1800 OPERATION MANUAL( AUTOMATED BLOOD COUNTS AND [...] DESIRABLE: <130 MG/DL <110 MG/DL BORDERLINE-HIGH RISK: 130- 159 MG/DL 110-129 MG/DL HIGH RISK: >160 MG/DL >130 MG/DL *CHILDREN AND ADOLESCENTS REPRESENTS INDIVIDUALA AGED 2-19 YEARS EXCLUSIVE. MPV 9.4 fL 9.0-13.0 [facility] ([facility] NORMAL RANGES Age WBC RBC HGB HCT [...] HCT IS 5% LESS SOURCE FOR DATA: [employer] 1800 OPERATION MANUAL( AUTOMATED BLOOD COUNTS AND [...] DESIRABLE: <130 MG/DL <110 MG/DL BORDERLINE-HIGH RISK: 130- 159 MG/DL 110-129 MG/DL HIGH RISK: >160 MG/DL >130 MG/DL *CHILDREN AND ADOLESCENTS REPRESENTS INDIVIDUALA AGED 2-19 YEARS EXCLUSIVE. MXD# 0.6 10E3/uL 0.0-1.8 [facility] ([facility] NORMAL RANGES Age WBC RBC HGB HCT [...] HCT IS 5% LESS SOURCE FOR DATA: [employer] 1800 OPERATION MANUAL( AUTOMATED BLOOD COUNTS AND [...] DESIRABLE: <130 MG/DL <110 MG/DL BORDERLINE-HIGH RISK: 130- 159 MG/DL 110-129 MG/DL HIGH RISK: >160 MG/DL >130 MG/DL *CHILDREN AND ADOLESCENTS REPRESENTS INDIVIDUALA AGED 2-19 YEARS EXCLUSIVE. ID Date Data Source WWBC DIGITAL / [place] BILATERAL MAMMO SCREENING (Ultraso und if indicated) 02/11/2021 12:00:00 AM EDT [email or web address] ([facility]) Name Value Range Interpretation Code Description Data Chen rce(s) Supporting Document(s) WWBC DIGITAL / [place] BILAT ERAL MAMMO SCREENING (Ultrasound if indicated) eCW1 ([facility]) Procedure Social History Code Duration Value Status Description Data Source(s ) Smoking 03/25/2021 12:00:00 AM EDT Patient is a former smoker completed Patient is a former smoker [facility]IRA ([facility]) Vital Signs ID Date Data Source UNK Name Value Range Interpretation Code Description Data Source(s) Systolic blood pressure 124 mm[Hg] 124 mm[Hg] M JORGE L ([facility]) Diastolic blood pressure 84 mm[Hg] 84 mm[Hg] SHAKIRA ([facility]) Heart rate 64 /min 64 /min [facility]IR[facility] ([facility]) Body weight 136.00 [lb_av] 136.00 [lb_av] JOSELO T ([facility]) Systolic blood pressure 126 mm[Hg] 126 mm[Hg] M JORGE L ([facility] [place] body weight 110 [lb_av] 110 [lb_av] BHARATIEN T ([facility] Body mass index (BMI) [Ratio] 24.9 kg/m2 24.9 k g/m2 [facility] ([facility] Oxygen saturation in Arterial blood by Pulse oximetry 97 % 97 % SHAKIRA ([facility] Diastolic blood pressure 76 mm[Hg] 76 mm[Hg] SHAKIRA ([facility] Body temperature 98.7 [degF] 98.7 [degF] SHAKIRA ([facility] Heart rate 92 /min 92 /min [facility] ([facility] Respiratory rate 12 /min 12 /min [facility] ( [facility] Body height 62 [in_i] 62 [in_i] [facility] ([facility] 5'2" Body weight 136.00 [lb_av] 136.00 [lb_av] MEDEN T ([facility] Body surface area Derived from formula 1.64 m2 1.64 m2 [facility] ([facility] Body weight 63.050 kg 63.050 kg [facility] ([facility]) [place] body weight 110 [lb_av] 110 [lb_av] MEDEN T ([facility]) Body mass index (BMI) [Ratio] 25.4 kg/m2 25.4 k g/m2 [facility] ([facility]) Body weight 139.00 [lb_av] 139.00 [lb_av] MEDEN T ([facility]) Body height 62 [in_i] 62 [in_i] [facility] ([facility]) 5'2" Diastolic blood pressure 78 mm[Hg] 78 mm[Hg] [facility] ([facility]) Systolic blood pressure 122 mm[Hg] 122 mm[Hg] M EDENT ([facility]) Body mass index (BMI) [Ratio] 25.2 kg/m2 25.2 k g/m2 [facility] ([facility] Diastolic blood pressure 70 mm[Hg] 70 mm[Hg] [facility] ([facility] Systolic blood pressure 124 mm[Hg] 124 mm[Hg] M EDENT ([facility] Body temperature 98.2 [degF] 98.2 [degF] [facility] ([facility] Heart rate 60 /min 60 /min [facility] ([facility] Respiratory rate 12 /min 12 /min [facility] ( [facility] Body height 62 [in_i] 62 [in_i] [facility] ([facility] 5'2" Body weight 138.00 [lb_av] 138.00 [lb_av] MEDEN T ([facility] [place] body weight 110 [lb_av] 110 [lb_av] MEDEN T ([facility] Oxygen saturation in Arterial blood by Pulse oximetry 96 % 96 % MEDENT ([facility] Body mass index (BMI) [Ratio] 25.2 kg/m2 25.2 k g/m2 MED[facility] ([facility]) Body height 62 [in_i] 62 [in_i] [facility] 5'2" Body weight 138.00 [lb_av] 138.00 [lb_av] MEDEN T ([facility]) Diastolic blood pressure 72 mm[Hg] 72 mm[Hg] MEDENT ([facility]) sitting Systolic blood pressure 126 mm[Hg] 126 mm[Hg] M EDENT ([facility]) sitting Diastolic blood pressure 76 mm[Hg] 76 mm[Hg] MEDENT ([facility]) sitting, regular cuff Systolic blood pressure 128 mm[Hg] 128 mm[Hg] M EDENT ([facility]) sitting, regular cuff Respiratory rate 16 /min 16 /min MEDENT ( [facility]) Heart rate 60 /min 60 /min [facility] ([facility]) Regular Oxygen saturation in Arterial blood by Pulse oximetry 97 % 97 % MEDENT ([facility] Body mass index (BMI) [Ratio] 25.2 kg/m2 25.2 k g/m2 MED[facility] ([facility] [place] body weight 110 [lb_av] 110 [lb_av] MEDEN T ([facility] Body weight 138.00 [lb_av] 138.00 [lb_av] MEDEN T ([facility] Body height 62 [in_i] 62 [in_i] MEDENT ([facility] [facility] 5'2" Respiratory rate 16 /min 16 /min MEDENT ( [facility] Heart rate 62 /min 62 /min MEDENT ([facility] Body temperature 98.5 [degF] 98.5 [degF] MEDENT ([facility] Diastolic blood pressure 68 mm[Hg] 68 mm[Hg] MEDFAHAD ([facility] Systolic blood pressure 116 mm[Hg] 116 mm[Hg] M EDFAHAD ([facility] Diastolic blood pressure 70 mm[Hg] 70 mm[Hg] eCW1 ([facility]) Systolic blood pressure 122 mm[Hg] 122 mm[Hg] e CW1 ([facility]) Body mass index (BMI) [Ratio] 24.44 kg/m2 24.44 kg/m2 eCW1 ([facility]) Body height 63 [in_i] 63 [in_i] eCW1 ([facility]) Body weight 62.6 kg 62.6 kg eCW1 ([facility]) Body weight 138 [lb_av] 138 [lb_av] eCW1 ([facility]) Systolic blood pressure 120 mm[Hg] 120 mm[Hg] M JORGE L ([facility] Body mass index (BMI) [Ratio] 25.8 kg/m2 25.8 k g/m2 MEDENT ([facility] Body weight 141.00 [lb_av] 141.00 [lb_av] MEDEN T ([facility] Respiratory rate 16 /min 16 /min MEDENT ( [facility] Heart rate 74 /min 74 /min MEDFAHAD ([facility] Oxygen saturation in Arterial blood by Pulse oximetry 96 % 96 % MEDFAHAD ([facility] [place] body weight 110 [lb_av] 110 [lb_av] MEDEN T ([facility] Body height 62 [in_i] 62 [in_i] MEDFAHAD ([facility] 5'2" Body temperature 97.7 [degF] 97.7 [degF] MEDFAHAD ([facility] Diastolic blood pressure 62 mm[Hg] 62 mm[Hg] MEDFAHAD ([facility] Oxygen saturation in Arterial blood by Pulse oximetry 97 % 97 % MEDENT ([facility] Systolic blood pressure 118 mm[Hg] 118 mm[Hg] M EDENT ([facility] Body mass index (BMI) [Ratio] 25.4 kg/m2 25.4 k g/m2 MEDENT ([facility] [place] body weight 110 [lb_av] 110 [lb_av] MEDEN T ([facility] Body weight 139.00 [lb_av] 139.00 [lb_av] MEDEN T ([facility] Body height 62 [in_i] 62 [in_i] MEDENT ([facility] 5'2" Respiratory rate 16 /min 16 /min MEDENT ( [facility] Heart rate 72 /min 72 /min MEDENT ([facility] Body temperature 98.0 [degF] 98.0 [degF] MEDENT ([facility] Diastolic blood pressure 62 mm[Hg] 62 mm[Hg] MEDENT ([facility] Respiratory rate 16 /min 16 /min MEDENT ( [facility] Oxygen saturation in Arterial blood by Pulse oximetry 98 % 98 % MEDENT ([facility] Body mass index (BMI) [Ratio] 24.7 kg/m2 24.7 k g/m2 MEDENT ([facility] [place] body weight 110 [lb_av] 110 [lb_av] MEDEN T ([facility] Body weight 135.00 [lb_av] 135.00 [lb_av] MEDEN T ([facility] Body height 62 [in_i] 62 [in_i] MEDENT ([facility] 5'2" Heart rate 72 /min 72 /min MEDENT ([facility] Body temperature 98.2 [degF] 98.2 [degF] MEDENT ([facility] Diastolic blood pressure 88 mm[Hg] 88 mm[Hg] MEDENT ([facility] Systolic blood pressure 138 mm[Hg] 138 mm[Hg] Aarti COATS ([facility]
[2021-08-13] MEDS ORDERED: propofoL 200 MG/20 ML VIAL As Ordered ONE (08:34)
[2021-08-13] MEDS ORDERED: LIDOCAINE 2% 100MG/5ML SDV (FOR ANES.) As Ordered ONE (08:34)
--- NOTE | 2021-08-13 09:58 | ROOR ---
Patient Name: Sharon Retana Procedure Date: 08/13/2021 9:36 AM Date of : 1960 Age: 61 Room: [facility] Gender: Female Note Status: Finalized Procedure: Colonoscopy Indications: Screening for colorectal malignant neoplasm Providers: Sanju Kaplan MD Referring MD: MAXIMUS ROQUE MD Requesting Provider: Medicines: Monitored Anesthesia Care Complications: No immediate complications. Procedure: Pre-Anesthesia Assessment: - The heart rate, respiratory rate, oxygen saturations, blood pressure, adequacy of pulmonary ventilation, and response to care were monitored throughout the procedure. The Colonoscope was introduced through the anus and advanced to the terminal ileum, with identification of the appendiceal orifice and IC valve. The colonoscopy was performed without difficulty. The patient tolerated the procedure well. The quality of the bowel preparation was good. Findings: The perianal and digital rectal examinations were normal. Mild sigmoid diverticulosis and small internal hemorrhoids. The exam was otherwise without abnormality. Impression: - Mild sigmoid diverticulosis and small internal hemorrhoids. - The colonoscopy is otherwise normal. - No specimens collected. Recommendation: - Repeat colonoscopy in 10 years for screening purposes. Procedure Code(s): --- Professional --- 04421, Colonoscopy, flexible; diagnostic, including collection of specimen(s) by brushing or washing, when performed (separate procedure) Diagnosis Code(s): --- Professional --- Z12.11, Encounter for screening for malignant neoplasm of colon CPT copyright 2019 [employer]. All rights reserved. The codes documented in this report are preliminary and upon earth science faculty member review may be revised to meet current compliance requirements. Sanju Kaplan MD Sanju Kaplan MD 08/13/2021 9:58:01 AM Electronically signed by Sanju Kaplan MD Number of Addenda: 0 Note Initiated On: 08/13/2021 9:36 AM Estimated Blood Loss: Estimated blood loss: none.
[2021-08-13 10:15] VITALS: BP 133/75
== END 2021-08-13 10:26 | disposition home or self-care (01) ==
LOC: M OPP 08:25
PROVIDERS: ATTEND Internal Medicine Gastroenterology
DX: Z12.11 Encounter for screening for malignant neoplasm of colon (principal); K57.30 Diverticulosis of large intestine without perforation or abscess without bleeding; K64.8 Other hemorrhoids; K21.9 Gastro-esophageal reflux disease without esophagitis; Z79.82 Long term (current) use of aspirin; Z79.891 Long term (current) use of opiate analgesic; Z79.899 Other long term (current) drug therapy; Z88.1 Allergy status to other antibiotic agents; Z95.5 Presence of coronary angioplasty implant and graft; I25.2 Old myocardial infarction

== ENCOUNTER → 2022-03-30 | Outpatient (CLI) | payer OTHER ==
[~2022-03-30] MED LIST changes: -D31000TA2 PO; -FLUC150T; +FLUC150T9; +L-LY500T23 PO; -L-LY500T9 PO; -NS 1,000 ML IV ONE; +VITA100093 PO
== END ==
LOC: M WUC 11:13
PROVIDERS: ATTEND Internal Medicine
DX: R10.9 Unspecified abdominal pain (principal)

== ENCOUNTER → 2022-04-25 | Outpatient (CLI) | payer OTHER | LOC: M WHC 08:40 | PROVIDERS: ATTEND Internal Medicine | DX: Z12.31 Encounter for screening mammogram for malignant neoplasm of breast (principal) ==

== ENCOUNTER → 2022-06-01 | Outpatient (CLI) | payer OTHER ==
[~2022-06-01] MED LIST changes: +GASTROGRAFIN SOLUTION 30ML (Q9963) As Ordered ONE; +ISOVUE-370 76% 100ML VIAL As Ordered ONE
== END ==
LOC: M RAD 12:56
PROVIDERS: ATTEND Internal Medicine
DX: N28.1 Cyst of kidney, acquired (principal)
CPT/HCPCS: 74178; Q9963; Q9967

== ENCOUNTER → 2022-06-06 | Outpatient (REF) | payer OTHER ==
[~2022-06-06] MED LIST changes: -GASTROGRAFIN SOLUTION 30ML (Q9963) As Ordered ONE; -ISOVUE-370 76% 100ML VIAL As Ordered ONE
== END ==
LOC: M PLALAB 17:05
PROVIDERS: ATTEND Nurse Practitioner Family
DX: Z12.4 Encounter for screening for malignant neoplasm of cervix (principal)

== ENCOUNTER 2022-08-19 17:48 | Inpatient (IN) | payer OTHER ==
[~2022-08-19] VITALS: Ht 157.5 cm; Wt 65.5 kg
[~2022-08-19 17:48] MED LIST changes: -BENI40TA28 PO; -CRES10TA; +CRES10TA PO; +OLME-2 PO
[2022-08-19] MEDS ORDERED: IBUPROFEN 600MG TAB PO ONE (18:15)
[2022-08-19 19:05] LABS: BASO % 0.3 % (0.0-1.0); EOS # 0.1 10^3/uL (0.0-0.5); HEMATOCRIT 38.3 % (36.0-47.0); HEMOGLOBIN 12.7 g/dl (12.0-15.5); LYMPH % 8.1 % (24.0-44.0); MEAN CORPUSCULAR HEMOGLOBIN 29.4 pg (27.0-33.0); MEAN CORPUSCULAR HGB CONC 33.2 g/dl (32.0-36.5); MEAN CORPUSCULAR VOLUME 88.7 fl (80.0-96.0); MONO # 1.5 10^3/uL (0.0-0.8); MONO % 11.4 % (2.0-8.0); NEUTROPHILS # 10.2 10^3/uL (1.5-8.5); NEUTROPHILS % 78.9 % (36.0-66.0); PLATELET COUNT, AUTOMATED 223 10^3/uL (150-450); RED BLOOD COUNT 4.32 10^6/uL (4.00-5.40); WHITE BLOOD COUNT 12.9 10^3/uL (4.0-10.0)
[2022-08-19 19:39] LABS: ALBUMIN 3.6 GM/DL (3.2-5.2); ALT/SGPT 23 U/L (12-78); BILIRUBIN,DIRECT 0.2 MG/DL (0.0-0.2); BILIRUBIN,TOTAL 0.6 MG/DL (0.2-1.0); BLOOD UREA NITROGEN 16 MG/DL (7-18); CALCIUM LEVEL 8.7 MG/DL (8.8-10.2); CARBON DIOXIDE LEVEL 26 MEQ/L (21-32); CHLORIDE LEVEL 105 MEQ/L (98-107); CREATININE FOR GFR 0.89 MG/DL (0.55-1.30); GLOMERULAR FILTRATION RATE > 60.0 (>45); GLUCOSE, FASTING 111 MG/DL (70-100); LIPASE 143 U/L (73-393); POTASSIUM SERUM 3.4 MEQ/L (3.5-5.1); SODIUM LEVEL 138 MEQ/L (136-145); TOTAL PROTEIN 6.6 GM/DL (6.4-8.2)
[2022-08-19] MEDS ORDERED: ACETAMINOPHEN 325 MG TAB PO ONE (22:10)
[2022-08-19] MEDS ORDERED: NS 1,000 ML IV ONE (22:40)
[2022-08-19] MEDS ORDERED: MORPHINE 2 MG/ML 1ML VIAL IV ONE (22:40)
[2022-08-19 23:01] LABS: RSV AMPLIFICATION NEGATIVE (NEGATIVE)
[2022-08-20] MEDS ORDERED: metroNIDAZOLE 500 MG in IV 1 EA IV ONE (02:00)
[2022-08-20] MEDS ORDERED: CIPROFLOXACIN 400 MG in IV 1 EA IV ONE (02:00)
[2022-08-20] MEDS ORDERED: TRAM50TA2 PO (02:32)
[2022-08-20] MEDS ORDERED: ONDA-83 PO (02:32)
[2022-08-20] MEDS ORDERED: PANT40TA29 PO (02:32)
[2022-08-20] MEDS ORDERED: HOME MED LIST COMPLETE! XX SCH (02:35)
[2022-08-20] MEDS: NS 1,000 ML IV SCH ×3 (02:48→15:44)
[2022-08-20] MEDS ORDERED: ACETAMINOPHEN TAB 650MG DOSE (2X325MG) PO PRN (03:05)
[2022-08-20] MEDS: MORPHINE 2 MG/ML 1ML VIAL IV PRN ×3 (03:52→15:50)
[2022-08-20] MEDS ORDERED: POTASSIUM CHLORIDE 10% LIQ 20 MEQ/15 ML UDC PO ONE (05:00)
[2022-08-20] MEDS: HEPARIN SOD (PORCINE) 5000UNITS/ML 1ML VIAL/SYRINGE SC SCH ×3 (06:58→21:21)
[2022-08-20 07:29] LABS: BLOOD UREA NITROGEN 11 MG/DL (7-18); CALCIUM LEVEL 8.1 MG/DL (8.8-10.2); CARBON DIOXIDE LEVEL 27 MEQ/L (21-32); CHLORIDE LEVEL 107 MEQ/L (98-107); CREATININE FOR GFR 0.78 MG/DL (0.55-1.30); GLOMERULAR FILTRATION RATE > 60.0 (>45); GLUCOSE, FASTING 85 MG/DL (70-100); SODIUM LEVEL 142 MEQ/L (136-145)
[2022-08-20] MEDS: metroNIDAZOLE (FLAGYL) 500MG TABLET PO SCH ×2 (14:08→21:21)
[2022-08-20 15:00] VITALS: BP 126/86
[2022-08-20] MEDS ORDERED: CIPROFLOXACIN 400 MG in IV 1 EA IV SCH (15:00)
[2022-08-20] MEDS: VANCOMYCIN ORAL SOL 250MG/5ML ORAL SYRINGE PO SCH (17:36)
[2022-08-20] MEDS: PERCOCET 5MG/325MG TAB PO PRN (17:40)
[2022-08-20 21:21] VITALS: BP 106/51
[2022-08-20] MEDS: ONDANSETRON 4MG ORAL DISINTEGRATING TAB PO PRN (21:53)
[2022-08-21] MEDS: VANCOMYCIN ORAL SOL 250MG/5ML ORAL SYRINGE PO SCH ×2 (00:34→05:36)
[2022-08-21] MEDS: PERCOCET 5MG/325MG TAB PO PRN ×2 (01:37→08:42)
[2022-08-21] MEDS: NS 1,000 ML IV SCH (01:37)
[2022-08-21] MEDS: HEPARIN SOD (PORCINE) 5000UNITS/ML 1ML VIAL/SYRINGE SC SCH (05:36)
[2022-08-21] MEDS: ONDANSETRON 4MG ORAL DISINTEGRATING TAB PO PRN ×2 (05:36→12:09)
[2022-08-21] MEDS: metroNIDAZOLE (FLAGYL) 500MG TABLET PO SCH (05:36)
[2022-08-21 06:00] VITALS: BP 117/55
[2022-08-21] MEDS ORDERED: FIDAXOMICIN 200 MG TAB (DIFICID) PO SCH (09:00)
[2022-08-21] MEDS ORDERED: DIFI200T PO ×2 (09:28→12:50)
[2022-08-21 09:34] LABS: BASO % 0.4 % (0.0-1.0); EOS # 0.3 10^3/uL (0.0-0.5); EOS % 3.1 % (0.0-3.0); HEMATOCRIT 34.6 % (36.0-47.0); HEMOGLOBIN 11.2 g/dl (12.0-15.5); LYMPH # 3.2 10^3/uL (1.5-5.0); LYMPH % 29.2 % (24.0-44.0); MEAN CORPUSCULAR HEMOGLOBIN 29.1 pg (27.0-33.0); MEAN CORPUSCULAR HGB CONC 32.4 g/dl (32.0-36.5); MEAN CORPUSCULAR VOLUME 89.9 fl (80.0-96.0); MONO # 0.7 10^3/uL (0.0-0.8); MONO % 6.4 % (2.0-8.0); NEUTROPHILS # 6.5 10^3/uL (1.5-8.5); NEUTROPHILS % 60.2 % (36.0-66.0); PLATELET COUNT, AUTOMATED 189 10^3/uL (150-450); RED BLOOD COUNT 3.85 10^6/uL (4.00-5.40); WHITE BLOOD COUNT 10.8 10^3/uL (4.0-10.0)
[2022-08-21 10:20] LABS: ALT/SGPT 17 U/L (12-78); BILIRUBIN,TOTAL 0.5 MG/DL (0.2-1.0); BLOOD UREA NITROGEN 4 MG/DL (7-18); CALCIUM LEVEL 8.3 MG/DL (8.8-10.2); CARBON DIOXIDE LEVEL 27 MEQ/L (21-32); CHLORIDE LEVEL 108 MEQ/L (98-107); CREATININE FOR GFR 0.63 MG/DL (0.55-1.30); GLOMERULAR FILTRATION RATE > 60.0 (>45); GLUCOSE, FASTING 80 MG/DL (70-100); SODIUM LEVEL 141 MEQ/L (136-145); TOTAL PROTEIN 5.7 GM/DL (6.4-8.2)
[2022-08-21] MEDS ORDERED: POTASSIUM CHLORIDE 10MEQ SR TABLET PO ONE (11:00)
[2022-08-21 11:20] LABS: MAGNESIUM LEVEL 1.7 MG/DL (1.8-2.4)
[2022-08-21] MEDS ORDERED: MAG SULF 1GM/100ML (MAG RUN) 1 GM in IV 1 EA IV ONE (12:00)
== END 2022-08-21 14:20 | disposition home or self-care (01) | DRG 872 ==
LOC: M ED 17:48 → M ED INP 08-20 03:05 → ENRESERV 08-20 13:52 → M MS5PR 08-20 14:55
PROVIDERS: ADMIT Internal Medicine; ATTEND Internal Medicine
DX: A41.9 Sepsis, unspecified organism (principal); A04.72 Enterocolitis due to Clostridium difficile, not specified as recurrent; R65.20 Severe sepsis without septic shock; I10 Essential (primary) hypertension; E87.6 Hypokalemia; E83.42 Hypomagnesemia; Z79.82 Long term (current) use of aspirin; Z79.899 Other long term (current) drug therapy; Z88.1 Allergy status to other antibiotic agents

== ENCOUNTER → 2022-09-16 | Outpatient (REF) | payer OTHER ==
[~2022-09-16] MED LIST changes: +DIFI200T PO; +ONDA-83 PO; +PANT40TA29 PO; +TRAM50TA2 PO
== END ==
LOC: M LAB REF 14:34
PROVIDERS: ATTEND Internal Medicine
DX: A04.72 Enterocolitis due to Clostridium difficile, not specified as recurrent (principal)

== ENCOUNTER → 2022-11-01 | Outpatient (CLI) | payer OTHER ==
[2022-11-01 13:30] LABS: BASO % 0.6 % (0.0-1.0); EOS # 0.1 10^3/uL (0.0-0.5); EOS % 1.2 % (0.0-3.0); HEMATOCRIT 42.9 % (36.0-47.0); HEMOGLOBIN 14.1 g/dl (12.0-15.5); LYMPH # 2.4 10^3/uL (1.5-5.0); LYMPH % 34.4 % (24.0-44.0); MEAN CORPUSCULAR HEMOGLOBIN 29.3 pg (27.0-33.0); MEAN CORPUSCULAR HGB CONC 32.9 g/dl (32.0-36.5); MEAN CORPUSCULAR VOLUME 89.2 fl (80.0-96.0); MONO # 0.5 10^3/uL (0.0-0.8); NEUTROPHILS # 3.9 10^3/uL (1.5-8.5); NEUTROPHILS % 56.5 % (36.0-66.0); PLATELET COUNT, AUTOMATED 189 10^3/uL (150-450); RED BLOOD COUNT 4.81 10^6/uL (4.00-5.40); WHITE BLOOD COUNT 6.8 10^3/uL (4.0-10.0)
[2022-11-01 13:33] LABS: IMMUNOGLOBULIN A 161.9 MG/DL (40-350); IMMUNOGLOBULIN G 785 MG/DL (650-1600)
[2022-11-01 13:34] LABS: IMMUNOGLOBULIN M 130.7 MG/DL (50-300)
[2022-11-01 13:35] LABS: ALBUMIN 4.1 G/DL (3.2-5.2); ALKALINE PHOSPHATASE 75 U/L (46-116); ALT/SGPT 22 U/L (7.0-40); AST/SGOT 24 U/L (<34); BILIRUBIN,TOTAL 0.9 MG/DL (0.3-1.2); BLOOD UREA NITROGEN 11 MG/DL (9-23); CALCIUM LEVEL 8.9 MG/DL (8.3-10.6); CARBON DIOXIDE LEVEL 30 MMOL/L (20-31); CHLORIDE LEVEL 102 MMOL/L (98-107); CREATININE FOR GFR 0.81 MG/DL (0.55-1.30); GLOMERULAR FILTRATION RATE > 60.0 (>45); GLUCOSE, FASTING 94 MG/DL (74-106); POTASSIUM SERUM 3.6 MMOL/L (3.5-5.1); SODIUM LEVEL 142 MMOL/L (136-145); TOTAL PROTEIN 7.2 G/DL (5.7-8.2)
[2022-11-01 13:36] LABS: THYROID STIMULATING HORMONE 0.317 uIU/ML (0.55-4.78)
[2022-11-01 14:37] LABS: FREE T4 1.25 NG/DL (0.89-1.76)
== END ==
LOC: M PLALAB 11:18
PROVIDERS: ATTEND Internal Medicine Infectious Disease
DX: A49.8 Other bacterial infections of unspecified site (principal)

== ENCOUNTER → 2022-11-04 | Outpatient (REF) | payer OTHER ==
[2022-11-04 21:30] LABS: APPEARANCE, URINE MANUAL CLOUDY (CLEAR); BILIRUBIN, URINE MANUAL NEGATIVE (NEGATIVE); BLOOD URINE MANUAL POSITIVE (NEGATIVE); COLOR, URINE MANUAL YELLOW (YELLOW); GLUCOSE, URINE (UA) MANUAL NEGATIVE (NEGATIVE); KETONE, URINE MANUAL NEGATIVE (NEGATIVE); LEUKOCYTE ESTERASE, URINE MAN POSITIVE (NEGATIVE); NITRITE, URINE MANUAL NEGATIVE (NEGATIVE); PROTEIN, URINE MANUAL 1+ mg/dL (NEGATIVE); UROBILINOGEN, URINE MANUAL NORMAL (NORMAL)
[2022-11-04 21:41] LABS: RBC, URINE TNTC /hpf (0-3); SQUAMOUS EPITHELIAL CELL URINE NONE SEEN /hpf (SMALL AMT); WBC, URINE TNTC /hpf (0-3)
[2022-11-04 21:42] LABS: BACTERIA, URINE LARGE AMOUNT; HYALINE CAST, URINE NONE SEEN /lpf (0-1)
== END ==
LOC: M LAB REF 21:02
PROVIDERS: ATTEND Physician Assistant
DX: N39.0 Urinary tract infection, site not specified (principal)

== ENCOUNTER 2022-12-13 14:46 | Outpatient (CLI) | payer OTHER ==
[~2022-12-13] VITALS: Ht 157.5 cm; Wt 58.6 kg
[2022-12-13 15:17] VITALS: BP 140/63
[2022-12-13] MEDS ORDERED: BEZLOTOXUMAB 600 MG in NS 100 ML IV ONE (16:00)
[2022-12-13 16:37] VITALS: BP 119/58
== END 2022-12-13 16:40 | disposition home or self-care (01) ==
LOC: M INFU 14:46
PROVIDERS: ATTEND Internal Medicine Infectious Disease
DX: A04.71 Enterocolitis due to Clostridium difficile, recurrent (principal); Z88.8 Allergy status to other drugs, medicaments and biological substances; Z53.9 Procedure and treatment not carried out, unspecified reason
CPT/HCPCS: 96365; J0565

== ENCOUNTER → 2023-01-24 | Outpatient (CLI) | payer OTHER ==
[~2023-01-24] MED LIST changes: +GASTROGRAFIN SOLUTION 30ML As Ordered ONE; +ISOVUE-370 76% 100ML VIAL As Ordered ONE; +ONDA4TAB6 PO
== END ==
LOC: M RAD 08:31
PROVIDERS: ATTEND Physician Assistant Medical
DX: R10.31 Right lower quadrant pain (principal)

== ENCOUNTER 2023-01-25 16:24 | Emergency (ER) | payer OTHER ==
[~2023-01-25] VITALS: Ht 157.5 cm; Wt 58.7 kg
[~2023-01-25 16:24] MED LIST changes: -ONDA4TAB6 PO
[2023-01-25] MEDS ORDERED: ONDANSETRON 4MG 2ML VIAL IV ONE (17:10)
[2023-01-25] MEDS ORDERED: NS 1,000 ML IV ONE (17:10)
[2023-01-25] MEDS ORDERED: KETOROLAC 30 MG/ML 1ML VIAL IV ONE (17:10)
[2023-01-25] MEDS ORDERED: MORPHINE 4 MG/ML 1ML VIAL IV ONE (17:45)
[2023-01-25 17:48] LABS: BASO % 0.4 % (0.0-1.0); EOS # 0.1 10^3/uL (0.0-0.5); EOS % 1.2 % (0.0-3.0); HEMATOCRIT 42.6 % (36.0-47.0); HEMOGLOBIN 14.1 g/dl (12.0-15.5); LYMPH % 29.8 % (24.0-44.0); MEAN CORPUSCULAR HEMOGLOBIN 29.7 pg (27.0-33.0); MEAN CORPUSCULAR HGB CONC 33.1 g/dl (32.0-36.5); MEAN CORPUSCULAR VOLUME 89.7 fl (80.0-96.0); MONO # 0.6 10^3/uL (0.0-0.8); NEUTROPHILS % 59.5 % (36.0-66.0); PLATELET COUNT, AUTOMATED 208 10^3/uL (150-450); RED BLOOD COUNT 4.75 10^6/uL (4.00-5.40); WHITE BLOOD COUNT 6.8 10^3/uL (4.0-10.0)
[2023-01-25 18:12] LABS: LIPASE 52 U/L (12-53)
[2023-01-25 18:14] LABS: ALKALINE PHOSPHATASE 73 U/L (46-116); ALT/SGPT 17 U/L (7.0-40); AST/SGOT < 8 U/L (<34); BILIRUBIN,DIRECT 0.2 MG/DL (<0.4); BILIRUBIN,TOTAL 0.6 MG/DL (0.3-1.2); TOTAL PROTEIN 6.8 G/DL (5.7-8.2)
[2023-01-25] MEDS ORDERED: ONDA4TAB6 PO (19:19)
[2023-01-25 19:25] VITALS: BP 134/62
== END 2023-01-25 19:39 | disposition home or self-care (01) ==
LOC: M ED 16:24
DX: A08.4 Viral intestinal infection, unspecified (principal); E86.0 Dehydration; I25.2 Old myocardial infarction; I10 Essential (primary) hypertension; K21.9 Gastro-esophageal reflux disease without esophagitis; E78.5 Hyperlipidemia, unspecified; M54.31 Sciatica, right side; Z95.5 Presence of coronary angioplasty implant and graft; Z87.442 Personal history of urinary calculi; Z88.1 Allergy status to other antibiotic agents; Z79.84 Long term (current) use of oral hypoglycemic drugs; Z79.899 Other long term (current) drug therapy

== ENCOUNTER → 2023-01-25 | Outpatient (REF) | payer OTHER ==
[~2023-01-25] MED LIST changes: -GASTROGRAFIN SOLUTION 30ML As Ordered ONE; -ISOVUE-370 76% 100ML VIAL As Ordered ONE
== END ==
LOC: M SFHCPLAZ 14:57
PROVIDERS: ATTEND Internal Medicine Infectious Disease
DX: A49.8 Other bacterial infections of unspecified site (principal)

== ENCOUNTER 2023-03-31 09:41 | Day surgery (SDC) | payer MEDICARE, OTHER ==
[~2023-03-31] VITALS: Ht 157.5 cm; Wt 58.4 kg
[~2023-03-31 09:41] MED LIST changes: +BIOT1CAP2 PO; +CRES5TAB PO; +LORA-243 PO; +ONDA4TAB6 PO
[2023-03-31] MEDS ORDERED: LIDOCAINE 2% 100MG/5ML SDV (FOR ANES.) As Ordered ONE (10:35)
[2023-03-31] MEDS ORDERED: propofoL 200 MG/20 ML VIAL As Ordered ONE (10:35)
[2023-03-31] MEDS ORDERED: fentaNYL 100 MCG/2 ML INJECTION As Ordered ONE (10:36)
[2023-03-31 12:41] VITALS: TEMP 97
[2023-03-31 13:16] VITALS: BP 127/60; O2SAT 97
== END 2023-03-31 13:16 | disposition home or self-care (01) ==
LOC: M OPP 09:41
PROVIDERS: ATTEND Internal Medicine Gastroenterology
DX: K57.30 Diverticulosis of large intestine without perforation or abscess without bleeding (principal); K64.8 Other hemorrhoids; K31.89 Other diseases of stomach and duodenum; R93.3 Abnormal findings on diagnostic imaging of other parts of digestive tract; Z79.02 Long term (current) use of antithrombotics/antiplatelets; Z79.82 Long term (current) use of aspirin; Z79.891 Long term (current) use of opiate analgesic; Z79.899 Other long term (current) drug therapy; Z88.1 Allergy status to other antibiotic agents
CPT/HCPCS: 43239; 45380; 88305; J3010

== ENCOUNTER → 2023-06-23 | Outpatient (CLI) | payer MEDICARE, OTHER ==
[~2023-06-23] MED LIST changes: +MECL-209 PO; -MECL1TAB31 PO
[2023-06-23 14:18] LABS: BLOOD UREA NITROGEN 9 MG/DL (9-23); CREATININE FOR GFR 0.79 MG/DL (0.55-1.30); GLOMERULAR FILTRATION RATE > 60.0 (>45)
== END ==
LOC: M PLALAB 10:33
PROVIDERS: ATTEND Physician Assistant Medical
DX: K86.2 Cyst of pancreas (principal)

== ENCOUNTER → 2023-09-22 | Outpatient (CLI) | payer MEDICARE, OTHER ==
[~2023-09-22] MED LIST changes: +GASTROGRAFIN SOLUTION 30ML As Ordered ONE; +ISOVUE-370 76% 100ML VIAL As Ordered ONE
== END ==
LOC: M RAD 08:04
PROVIDERS: ATTEND Physician Assistant Medical
DX: K86.2 Cyst of pancreas (principal)
CPT/HCPCS: 74170; Q9963; Q9967

== ENCOUNTER → 2024-02-09 | Outpatient (CLI) | payer MEDICARE, OTHER ==
[~2024-02-09] MED LIST changes: -GASTROGRAFIN SOLUTION 30ML As Ordered ONE; -ISOVUE-370 76% 100ML VIAL As Ordered ONE
[2024-02-09 12:53] LABS: ALKALINE PHOSPHATASE 91 U/L (46-116); ALT/SGPT 15 U/L (7.0-40); AST/SGOT 12 U/L (<34); BILIRUBIN,TOTAL 0.5 MG/DL (0.3-1.2); BLOOD UREA NITROGEN 14 MG/DL (9-23); CARBON DIOXIDE LEVEL 31 MMOL/L (20-31); CHLORIDE LEVEL 103 MMOL/L (98-107); CHOLESTEROL LEVEL 147 MG/DL (<200); CREATININE FOR GFR 0.75 MG/DL (0.55-1.30); GLOMERULAR FILTRATION RATE > 60.0 (>45); GLUCOSE, FASTING 90 MG/DL (74-106); HDL CHOLESTEROL 47.4 MG/DL (>40); LDL CHOLESTEROL 77.8 MG/DL (<100); NON-HDL-C 99.6 MG/DL; POTASSIUM SERUM 3.7 MMOL/L (3.5-5.1); SODIUM LEVEL 141 MMOL/L (136-145); TOTAL PROTEIN 6.5 G/DL (5.7-8.2); TRIGLYCERIDES LEVEL 109 MG/DL (<150)
== END ==
LOC: M PLALAB 10:20
PROVIDERS: ATTEND Internal Medicine
DX: E78.5 Hyperlipidemia, unspecified (principal)

== ENCOUNTER → 2024-05-30 | Outpatient (CLI) | payer MEDICARE, OTHER ==
[~2024-05-30] MED LIST changes: +ONDA-282 PO; -ONDA4TAB6 PO
== END ==
LOC: M RAD 11:50
PROVIDERS: ATTEND Internal Medicine
DX: R60.0 Localized edema (principal); M79.604 Pain in right leg

== ENCOUNTER → 2024-07-04 | Outpatient (REF) | payer MEDICARE, OTHER ==
[~2024-07-04] MED LIST changes: +GABA-1490 PO; -GABA600T4 PO
[2024-07-06 13:33] LABS: HPV APTIMA Not Detected (Not Detected)
== END ==
LOC: M SFHCWAGY 13:13
PROVIDERS: ATTEND Nurse Practitioner Family
DX: Z12.4 Encounter for screening for malignant neoplasm of cervix (principal); N95.2 Postmenopausal atrophic vaginitis
CPT/HCPCS: 87624; G0123

== ENCOUNTER → 2024-07-04 | Outpatient (CLI) | payer MEDICARE, OTHER | LOC: M WHC 15:00 | PROVIDERS: ATTEND Nurse Practitioner Family | DX: Z12.31 Encounter for screening mammogram for malignant neoplasm of breast (principal); R92.313 Mammographic fatty tissue density, bilateral breasts ==

== ENCOUNTER → 2024-10-24 | Outpatient (CLI) | payer MEDICARE, OTHER ==
[2024-10-24 17:44] LABS: BLOOD UREA NITROGEN 19 MG/DL (9-23); CREATININE FOR GFR 0.81 MG/DL (0.55-1.30); GLOMERULAR FILTRATION RATE > 60.0 (>45)
== END ==
LOC: M LRY 10:07
PROVIDERS: ATTEND Physician Assistant Medical
DX: K86.2 Cyst of pancreas (principal)

== ENCOUNTER → 2024-10-28 | Outpatient (CLI) | payer MEDICARE, OTHER ==
[~2024-10-28] MED LIST changes: +ISOVUE-370 76% 100ML VIAL ONE
== END ==
LOC: M PLAIMG 08:47
PROVIDERS: ATTEND Physician Assistant Medical
DX: K86.2 Cyst of pancreas (principal); N28.1 Cyst of kidney, acquired
CPT/HCPCS: 74170; Q9967

== ENCOUNTER → 2024-12-18 | Outpatient (CLI) | payer MEDICARE, OTHER ==
[~2024-12-18] MED LIST changes: -ISOVUE-370 76% 100ML VIAL ONE
[2024-12-18 15:36] LABS: BASO # 0.1 10^3/uL (0.0-0.2); BASO % 0.9 % (0.0-1.0); EOS # 0.2 10^3/uL (0.0-0.5); EOS % 2.1 % (0.0-3.0); HEMATOCRIT 41.7 % (36.0-47.0); HEMOGLOBIN 13.6 g/dl (12.0-15.5); LYMPH # 3.1 10^3/uL (1.5-5.0); LYMPH % 29.1 % (24.0-44.0); MEAN CORPUSCULAR HEMOGLOBIN 29.2 pg (27.0-33.0); MEAN CORPUSCULAR HGB CONC 32.6 g/dl (32.0-36.5); MEAN CORPUSCULAR VOLUME 89.5 fl (80.0-96.0); MONO # 0.7 10^3/uL (0.0-0.8); MONO % 6.7 % (2.0-8.0); NEUTROPHILS # 6.5 10^3/uL (1.5-8.5); PLATELET COUNT, AUTOMATED 351 10^3/uL (150-450); RED BLOOD COUNT 4.66 10^6/uL (4.00-5.40); WHITE BLOOD COUNT 10.7 10^3/uL (4.0-10.0)
[2024-12-18 15:42] LABS: ALBUMIN 3.8 G/DL (3.2-5.2); ALKALINE PHOSPHATASE 92 U/L (35-104); ALT/SGPT 16 U/L (7.0-40); AST/SGOT 14 U/L (<34); BILIRUBIN,TOTAL 0.5 MG/DL (0.3-1.2); BLOOD UREA NITROGEN 15 MG/DL (9-23); CARBON DIOXIDE LEVEL 30 MMOL/L (20-31); CHLORIDE LEVEL 102 MMOL/L (98-107); CHOLESTEROL LEVEL 119 MG/DL (<200); CHOLESTEROL RISK RATIO 3.28 (<5); CREATININE FOR GFR 0.94 MG/DL (0.55-1.30); GLOMERULAR FILTRATION RATE > 60.0 (>45); GLUCOSE, FASTING 100 MG/DL (74-106); HDL CHOLESTEROL 36.2 MG/DL (>40); LDL CHOLESTEROL 50.4 MG/DL (<100); NON-HDL-C 82.8 MG/DL; POTASSIUM SERUM 4.2 MMOL/L (3.5-5.1); SODIUM LEVEL 140 MMOL/L (136-145); TOTAL PROTEIN 7.1 G/DL (5.7-8.2); TRIGLYCERIDES LEVEL 162 MG/DL (<150)
== END ==
LOC: M PLALAB 11:27
PROVIDERS: ATTEND Internal Medicine
DX: I25.10 Atherosclerotic heart disease of native coronary artery without angina pectoris (principal)